=== PATIENT | female | born 1995 | race African-American/Black ===

== ENCOUNTER 2016-08-21 12:16 | Emergency (ER) | payer SELFPAY ==
--- NOTE | 2016-08-21 13:19 | ER Document Report ---
ED Medical Screen (RME) - General Chief Complaint: Abdominal Pain Stated Complaint: PAIN IN SIDE Mode of Arrival: Ambulatory Information source: Patient Notes: Patient states she is having left lower quadrant pain, described as throbbing, intermittent for the past month. She was told she was in June, unsure of LMP and is unsure of how far along she is. At that time, she was diagnosed with BV. She did not take the antibiotic as prescribed. She also endorses discharge, green in color. She has not tried any medication for pain. She endorses nausea, vomiting but denies fever, chills or diarrhea. Denies any vaginal bleeding or loss of fluid. She has not seen an OBGYN. TRAVEL OUTSIDE OF THE [place] IN LAST 30 DAYS: No - Related Data Allergies/Adverse Reactions: iodine [Iodine] Allergy (Severe, Verified 08/21/16 12:38) Hives Shellfish * [Shellfish] Allergy (Severe, Verified 08/21/16 12:38) Hives Past Medical History GI Medical History: Reports: Hx Gastroesophageal Reflux Disease - Immunizations Immunizations up to date: Yes Hx Diphtheria, Pertussis, Tetanus Vaccination: Yes - during this Review of Systems - Review of Systems Constitutional: See HPI Female Genitourinary: See HPI Physical Exam - Vital signs Vitals: Temp Pulse Resp BP Pulse Ox 98.1 F 96 18 116/61 100 08/21/16 12:36 08/21/16 12:36 08/21/16 12:36 08/21/16 12:36 08/21/16 12:36 - Notes Notes: General: Well-appearing, non-toxic, no respiratory distress. Course - Re-evaluation Re-evalutation: 08/21/16 13:25 Patient seen and examined. Ordered urinalysis and urine preg. - Vital Signs Vital signs: Temp Pulse Resp BP Pulse Ox 98.1 F 96 18 116/61 100 08/21/16 12:36 08/21/16 12:36 08/21/16 12:36 08/21/16 12:36 08/21/16 12:36
[2016-08-21 14:26] LABS: APPEARANCE,URINE SLIGHTLY-CLOUDY; BILIRUBIN,URINE NEGATIVE (NEGATIVE); GLUCOSE, URINE NEGATIVE (NEGATIVE); KETONES,URINE NEGATIVE (NEGATIVE); LEUKOCYTE ESTERASE,URINE TRACE (NEGATIVE); NITRITE,URINE NEGATIVE (NEGATIVE); PROTEIN,URINE NEGATIVE (NEGATIVE); URINE SPECIFIC GRAVITY 1.027; UROBILINOGEN,URINE NEGATIVE mg/dL (<2.0)
--- NOTE | 2016-08-21 17:05 | ER Document Report ---
ED General - General Chief Complaint: Abdominal Pain Stated Complaint: PAIN IN SIDE Time seen by provider: 17:00 Mode of Arrival: Ambulatory Notes: This is a 20-year-old female that presents today with vaginal discharge. She states that she was seen here in June of last year with a similar problem and was diagnosed with bacterial vaginosis. She was released on an antibiotic, however she was in the process of moving and lost the prescription. She denies taking the medication. She now states that the discharge is more copious, and describes it as green and clumpy with an odor. Admits to nausea and intermittent vomiting. Admits to constant left upper and left lower quadrant abdominal pain with no radiation and right flank pain. Denies fever chills chest pain shortness of breath. She does not recall her last menstrual period. 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 TRAVEL OUTSIDE OF THE [place] IN LAST 30 DAYS: No - Related Data Allergies/Adverse Reactions: iodine [Iodine] Allergy (Severe, Verified 08/21/16 12:38) Hives Shellfish * [Shellfish] Allergy (Severe, Verified 08/21/16 12:38) Hives Past Medical History - General Information source: Patient - Social History Smoking Status: Never Smoker Family History: Other - Patient is adopted and does not know her biological family GI Medical History: Reports: Hx Gastroesophageal Reflux Disease - Immunizations Immunizations up to date: Yes Hx Diphtheria, Pertussis, Tetanus Vaccination: Yes - during this Review of Systems - Review of Systems Constitutional: denies: Fever Cardiovascular: denies: Chest pain Respiratory: denies: Cough, Hurts to breathe Gastrointestinal: See HPI Genitourinary: See HPI Musculoskeletal: denies: Joint pain, Leg swelling, Ankle swelling Physical Exam - Vital signs Vitals: Temp Pulse Resp BP Pulse Ox 98.1 F 96 18 116/61 100 08/21/16 12:36 08/21/16 12:36 08/21/16 12:36 08/21/16 12:36 08/21/16 12:36 - General General appearance: Appears well - HEENT Head: Normocephalic, Atraumatic Eyes: No: Scleral icterus Conjunctiva: Normal - Respiratory Respiratory status: No respiratory distress. No: Tachypnea Chest status: Nontender - Cardiovascular Rhythm: Regular Heart sounds: Normal auscultation - Abdominal Tenderness: Tender - Left upper, left lower quadrant. - Back Back: CVA tenderness - Right flank - Extremities General upper extremity: Normal inspection General lower extremity: Normal inspection - Neurological Orientation: AAOx4 - Psychological Associated symptoms: Normal affect, Normal mood - Skin Skin Temperature: Warm Skin Moisture: Dry Skin Color: Normal Course - Re-evaluation Re-evalutation: 08/21/16 21:20 Pelvic exam completed. Etta DURBIN chaperoned the exam. Cervical os was closed. There was white cottage cheese like discharge. She denied tenderness on bimanual exam. Transvaginal ultrasound results was shared with the patient. She was given multiple opportunities to ask questions. She was advised to follow-up with an CEMETERY VAULT INSTALLER and establish care. She stated that she would do so. 08/21/16 21:59 Patient is being given treatment for chlamydia and gonorrhea. She is being given 250 of ceftriaxone and 1 g of azithromycin as well as 150 g of Diflucan by mouth for vaginal yeast. She agreed to be treated. She understands discharge instructions. She stated that she would follow-up for the results concerning the gonorrhea and chlamydia. - Vital Signs Vital signs: Temp Pulse Resp BP Pulse Ox 98.2 F 75 20 122/65 98 08/21/16 17:20 08/21/16 22:38 08/21/16 22:38 08/21/16 22:38 08/21/16 22:38 - Laboratory Result Diagrams: 08/21/16 17:15 08/21/16 17:15 Laboratory results interpreted by me: 08/21/16 08/21/16 08/21/16 13:44 17:15 17:15 RDW 14.5 H Creatinine 0.41 L Beta HCG, Quant 19783.00 H Ur Leukocyte Esterase TRACE H Urine HCG, Qual POSITIVE H Procedures - Pelvic Exam Pelvic exam Time completed: 21:20 Cultures obtained: Yes Wet prep obtained: Yes Herpes culture obtained: No POC sent to lab: No Foreign body removed: No Bimanual exam performed: Yes Witnessed by: Etta DURBIN Discharge - Discharge Clinical Impression: Vaginal yeast infection Abdominal pain Qualifiers: Abdominal location: left upper quadrant Qualified Code(s): R10.12 - Left upper quadrant pain Condition: Good Disposition: HOME, SELF-CARE Additional Instructions: Follow-up with primary care physician. Return to the emergency department if symptoms worsen. Vaginal Yeast Infection You have evidence of a yeast infection -- called "masha." A vaginal yeast infection often causes itching and discharge. While not dangerous, it can be very unpleasant. A yeast infection often follows the use of powerful antibiotics. It is more likely to occur in diabetics. The treatment now is usually a single pill of Diflucan, but also an antifungal cream or suppository may be used for a few days. You do not need to avoid sexual intercourse. Recurrences are common. You can make a recurrence less likely by wearing cotton underwear and avoiding tight clothing. For mild recurrences, you can try [id number] creams or suppositories that are made specifically for yeast. If the symptoms do not resolve, you should follow up for re-examination. Sometimes treatment of the sexual partner is necessary if infections are recurrent. Referrals: [facility] [Provider Group] - Follow up as needed
[2016-08-21 17:27] LABS: ABSOLUTE EOSINOPHILS # (AUTO) 0.1 10^3/uL (0.0-0.6); ABSOLUTE LYMPHOCYTES (AUTO) 1.9 10^3/uL (0.5-4.7); ABSOLUTE MONOCYTES (AUTO) 0.5 10^3/uL (0.1-1.4); BASOPHILS % (AUTO) 0.4 % (0-2); EOSINOPHILS % (AUTO) 0.7 % (0-6); HEMATOCRIT 38.8 % (36.0-47.0); HEMOGLOBIN 12.8 g/dL (12.0-15.5); HGB HCT DIFFERENCE -0.4; LYMPHOCYTES % (AUTO) 19.8 % (13-45); MEAN CORPUSCULAR HEMOGLOBIN 28.4 pg (27.0-33.4); MEAN CORPUSCULAR HGB CONC 33.1 g/dL (32.0-36.0); MEAN CORPUSCULAR VOLUME 86 fl (80-97); MONOCYTES % (AUTO) 5.2 % (3-13); RED BLOOD COUNT 4.52 10^6/uL (3.72-5.28); RED CELL DISTRIBUTION WIDTH 14.5 % (11.5-14.0); SEGMENTED NEUTROPHILS % (AUTO) 73.9 % (42-78); WHITE BLOOD COUNT 9.4 10^3/uL (4.0-10.5)
[2016-08-21 17:46] LABS: ALANINE AMINOTRANSFERASE 21 U/L (9-52); ALBUMIN 4.2 g/dL (3.5-5.0); ALKALINE PHOSPHATASE 64 U/L (38-126); ANION GAP 12 (5-19); ASPARTATE AMINO TRANSFERASE 14 U/L (14-36); BILIRUBIN,TOTAL 0.3 mg/dL (0.2-1.3); BLOOD UREA NITROGEN 7 mg/dL (7-20); CALCIUM 9.2 mg/dL (8.4-10.2); CARBON DIOXIDE 23 mmol/L (22-30); CHLORIDE 104 mmol/L (98-107); CREATININE RESULT 0.41 mg/dL (0.52-1.25); GLUCOSE 83 mg/dL (75-110); POTASSIUM 4.1 mmol/L (3.6-5.0); SODIUM 138.8 mmol/L (137-145); TOTAL PROTEIN 6.9 g/dL (6.3-8.2)
[2016-08-21] MEDS ORDERED: FLUCONAZOLE 100 MG TABLET PO ONE (21:56)
[2016-08-21] MEDS ORDERED: AZITHROMYCIN 1 GM SUSP PACKET PO ONE (21:58)
[2016-08-21] MEDS ORDERED: CEFTRIAXONE INJ 250 MG VIAL IM ONE (21:58)
[2016-08-21] MEDS ORDERED: LIDOCAINE 1% INJ-PF (10 MG/ML) 30 ML SDV ONE (22:27)
[2016-08-21 22:38] VITALS: BP 122/65
[2016-08-21 22:57] LABS: CHLAM PCR NOT DETECTED (NOT DETECT)
== END 2016-08-21 22:38 | disposition home or self-care (01) ==
LOC: ER 12:16
DX: B37.3 Candidiasis of vulva and vagina (principal); R10.12 Left upper quadrant pain; K21.9 Gastro-esophageal reflux disease without esophagitis; Z91.013 Allergy to seafood
CPT/HCPCS: 99284; 96372; 36415; 87210; 84702; 85025; 81025; 80053; 81001; 87491; 87591; 76817; 93976; J3490; Q0144; J0696

== ENCOUNTER 2016-11-25 17:35 | Outpatient (CLI) | payer MEDICAID ==
[2016-11-25 18:18] LABS: AMORPHOUS SEDIMENT,URINE TRACE /HPF; APPEARANCE,URINE CLOUDY; BILIRUBIN,URINE NEGATIVE (NEGATIVE); GLUCOSE, URINE NEGATIVE (NEGATIVE); KETONES,URINE NEGATIVE (NEGATIVE); LEUKOCYTE ESTERASE,URINE SMALL (NEGATIVE); NITRITE,URINE NEGATIVE (NEGATIVE); PROTEIN,URINE NEGATIVE (NEGATIVE); URINE SPECIFIC GRAVITY 1.011; UROBILINOGEN,URINE NEGATIVE mg/dL (<2.0)
[2016-11-25 18:29] LABS: URINE BARBITURATES SCREEN NEGATIVE; URINE METHADONE SCREEN NEGATIVE; URINE OPIATES LOW NEGATIVE; URINE PHENCYCLIDINE SCREEN NEGATIVE
--- NOTE | 2016-11-25 21:51 | L&D Discharge Summary ---
OB Discharge Summary Datetime Report Generated by CPN: 11/25/2016 21:51 DISCHARGE DIAGNOSIS Diagnosis/Symptoms: Abdominal Pain Diagnoses/Symptoms Other: round ligament pain Number of Babies in Womb: 1 Parity: 3 DIET/ACTIVITY/RESTRICTIONS Diet: Regular Activity: Normal Activity TEACHING/INSTRUCTIONS/REFERRALS Instructions Given To: pt Instructions Understood: Patient Verbalized Understanding Referrals: None Educational Materials- Other: round ligament pain care notes DISCHARGE INFORMATION Discharged AMA: No Discharge Date/Time: 11/25/2016 18:45 Discharged To: Home Discharge Provider Name: Dr Mejia Accompanied By: FOB Discharge Method: Ambulatory Condition: Stable FOLLOW UP INFORMATION Follow Up With: [facility] Follow Up On: 1-2 Days Follow Up Phone Number: [facility] -
--- NOTE | 2016-11-29 22:47 | L&D Current Admission ---
Current Admit Datetime Report Generated by CPN: 11/29/2016 22:45 ADMISSION INFORMATION Chief Complaint: Back Pain; Other (11/25/2016 17:55:Emliy Galindo RN)
--- NOTE | 2016-11-29 22:47 | L&D General Admission ---
General Admit Datetime Report Generated by CPN: 11/29/2016 22:45 INFORMATION Patient Age: 20 (10/04/2015 10:55:QS system process) EDC: 03/01/2017 00:00 (11/25/2016 17:49:Emily Galindo RN) : 4 (11/25/2016 17:49:Emily Galindo RN) Para: 3 (11/25/2016 17:49:Emily Galindo RN) Term: 3 (11/25/2016 17:49:Emily Galindo RN) : 0 (11/25/2016 17:49:Emily Galindo RN) Spontaneous Abortions: 0 (11/25/2016 17:49:Emily Galindo RN) Induced Abortions: 0 (11/25/2016 17:49:Emily Galindo RN) Livin (11/25/2016 17:49:Emily Galindo RN) Cesareans: 0 (11/25/2016 17:49:Emily Galindo RN) VBACs: 0 (11/25/2016 17:49:Emily Galindo RN) Ectopic: 0 (11/25/2016 17:49:Emily Galindo RN) Multiple Births: 0 (11/25/2016 17:49:Emily Galindo RN) Baby, Number in Womb: 1 (11/25/2016 17:49:Emily Galindo RN) CARE Primary Metal Bending Machine Operator: [facility] (11/25/2016 17:49:Emily Galindo RN) Height (in): 64 (11/25/2016 18:32:QS system process) Height (in): 64 (11/25/2016 18:20:QS system process) ALLERGIES Medication Allergy: No (11/25/2016 17:49:Emily Galindo RN) Medication Allergies: Shellfish */SV/Hives (08/21/2016); iodine/SV/Hives (08/21/2016) (08/21/2016 15:55:QS system process) Medication Allergies: Shellfish */SV/Hives (07/27/2016); iodine/SV/Hives (07/27/2016) (07/27/2016 18:47:QS system process) Medication Allergies: Shellfish */SV/Hives (09/20/2015); iodine/SV/Hives (09/20/2015) (01/27/2016 10:44:QS system process) Medication Allergies: Shellfish/SV/Hives (09/20/2015); Iodine/SV/Hives (09/20/2015) (10/04/2015 10:55:QS system process) Latex Allergy: No Latex Allergies (Annotations: Data stored by N on behalf of user) (11/25/2016 17:49:Emily Galindo RN) COMMUNICATION Primary Language: Northern Irish (11/25/2016 17:49:Emily Galindo RN) Medical Tx Preferred Language: Northern Irish (11/25/2016 17:49:Emily Galindo RN) DEMOGRAPHICS Address: [address] [place] [address] (08/09/2016 10:35:QS system process) Address: [address] [place] [address] (08/02/2016 12:42:QS system process) Address: [address] [place] [address] (10/04/2015 10:55:QS system process) Zipcode: [address] (10/04/2015 10:55:QS system process) Home (08/28/2016 12:52:QS system process) Home (08/02/2016 12:42:QS system process) Home (07/27/2016 18:47:QS system process) Home (06/23/2016 00:34:QS system process) Home (10/04/2015 10:55:QS system process) Work (08/09/2016 10:36:QS system process) Work (10/04/2015 10:55:QS system process) SSN: [id number] (10/04/2015 10:55:QS system process) Next of Kin Name: ANN RANGEL (07/27/2016 18:47:QS system process) Next of Kin Name: ANN ESTRADA (10/04/2015 10:55:QS system process) Next of Kin (10/04/2015 10:55:QS system process) Next of Kin Relationship: MO (10/04/2015 10:55:QS system process) Date of : 1995 (10/04/2015 10:55:QS system process) Marital Status: Single (10/04/2015 10:55:QS system process) Sex: Female (10/04/2015 10:55:QS system process) Race: (11/25/2016 17:35:QS system process) Race: Declined to Specify (08/28/2016 12:52:QS system process) Race: (10/04/2015 10:55:QS system process) Ethnicity: Non- or (10/04/2015 10:55:QS system process) Rastafarian: None (10/04/2015 10:55:QS system process) LABS Hemoglobin: 12.8 (08/21/2016 17:15:QS system process) Hemoglobin: 11.9 L (01/27/2016 11:45:QS system process) Hematocrit: 38.8 (08/21/2016 17:15:QS system process) Hematocrit: 37.4 (01/27/2016 11:45:QS system process) MCV: 86 (08/21/2016 17:15:QS system process) MCV: 86 (01/27/2016 11:45:QS system process)
--- NOTE | 2016-11-29 22:47 | L&D Discharge Summary ---
OB Discharge Summary Datetime Report Generated by CPN: 11/29/2016 22:45 DISCHARGE DIAGNOSIS Diagnosis/Symptoms: Abdominal Pain Diagnoses/Symptoms Other: round ligament pain Gestation: 26.4 Number of Babies in Womb: 1 Parity: 3 DIET/ACTIVITY/RESTRICTIONS Diet: Regular Activity: Normal Activity TEACHING/INSTRUCTIONS/REFERRALS Instructions Given To: pt Instructions Understood: Patient Verbalized Understanding Referrals: None Educational Materials- Other: round ligament pain care notes DISCHARGE INFORMATION Discharged AMA: No Discharge Date/Time: 11/25/2016 18:45 Discharged To: Home Discharge Provider Name: Dr Mejia Accompanied By: FOB Discharge Method: Ambulatory Condition: Stable FOLLOW UP INFORMATION Follow Up With: [facility] Follow Up On: 1-2 Days Follow Up Phone Number: [facility] -
--- NOTE | 2016-11-30 04:46 | L&D Current Admission ---
Current Admit Datetime Report Generated by CPN: 11/30/2016 04:45 ADMISSION INFORMATION Chief Complaint: Back Pain; Other (11/25/2016 17:55:Emily Galindo RN)
--- NOTE | 2016-11-30 04:46 | L&D Discharge Summary ---
OB Discharge Summary Datetime Report Generated by CPN: 11/30/2016 04:45 DISCHARGE DIAGNOSIS Diagnosis/Symptoms: Abdominal Pain Diagnoses/Symptoms Other: round ligament pain Gestation: 26.4 Number of Babies in Womb: 1 Parity: 3 DIET/ACTIVITY/RESTRICTIONS Diet: Regular Activity: Normal Activity TEACHING/INSTRUCTIONS/REFERRALS Instructions Given To: pt Instructions Understood: Patient Verbalized Understanding Referrals: None Educational Materials- Other: round ligament pain care notes DISCHARGE INFORMATION Discharged AMA: No Discharge Date/Time: 11/25/2016 18:45 Discharged To: Home Discharge Provider Name: Dr Mejia Accompanied By: FOB Discharge Method: Ambulatory Condition: Stable FOLLOW UP INFORMATION Follow Up With: [facility] Follow Up On: 1-2 Days Follow Up Phone Number: [facility] -
--- NOTE | 2016-11-30 04:46 | L&D General Admission ---
General Admit Datetime Report Generated by CPN: 11/30/2016 04:45 INFORMATION Patient Age: 20 (10/04/2015 10:55:QS system process) EDC: 03/01/2017 00:00 (11/25/2016 17:49:Emily Galindo RN) : 4 (11/25/2016 17:49:Emily Galindo RN) Para: 3 (11/25/2016 17:49:Emily Galindo RN) Term: 3 (11/25/2016 17:49:Emily Galindo RN) : 0 (11/25/2016 17:49:Emily Galindo RN) Spontaneous Abortions: 0 (11/25/2016 17:49:Emily Galindo RN) Induced Abortions: 0 (11/25/2016 17:49:Emily Galindo RN) Livin (11/25/2016 17:49:Emily Galindo RN) Cesareans: 0 (11/25/2016 17:49:Emily Galindo RN) VBACs: 0 (11/25/2016 17:49:Emily Galindo RN) Ectopic: 0 (11/25/2016 17:49:Emily Galindo RN) Multiple Births: 0 (11/25/2016 17:49:Emily Galindo RN) Baby, Number in Womb: 1 (11/25/2016 17:49:Emily Galindo RN) CARE Primary Sheriff Deputy: [facility] (11/25/2016 17:49:Emily Galindo RN) Height (in): 64 (11/25/2016 18:32:QS system process) Height (in): 64 (11/25/2016 18:20:QS system process) ALLERGIES Medication Allergy: No (11/25/2016 17:49:Emily Galindo RN) Medication Allergies: Shellfish */SV/Hives (08/21/2016); iodine/SV/Hives (08/21/2016) (08/21/2016 15:55:QS system process) Medication Allergies: Shellfish */SV/Hives (07/27/2016); iodine/SV/Hives (07/27/2016) (07/27/2016 18:47:QS system process) Medication Allergies: Shellfish */SV/Hives (09/20/2015); iodine/SV/Hives (09/20/2015) (01/27/2016 10:44:QS system process) Medication Allergies: Shellfish/SV/Hives (09/20/2015); Iodine/SV/Hives (09/20/2015) (10/04/2015 10:55:QS system process) Latex Allergy: No Latex Allergies (Annotations: Data stored by N on behalf of user) (11/25/2016 17:49:Emily Galindo RN) COMMUNICATION Primary Language: Northern Irish (11/25/2016 17:49:Emily Galindo RN) Medical Tx Preferred Language: Northern Irish (11/25/2016 17:49:Emily Galindo RN) DEMOGRAPHICS Address: [address] [place] [address] (08/09/2016 10:35:QS system process) Address: [address] [place] [address] (08/02/2016 12:42:QS system process) Address: [address] [place] [address] (10/04/2015 10:55:QS system process) Zipcode: [address] (10/04/2015 10:55:QS system process) Home (08/28/2016 12:52:QS system process) Home (08/02/2016 12:42:QS system process) Home (07/27/2016 18:47:QS system process) Home (06/23/2016 00:34:QS system process) Home (10/04/2015 10:55:QS system process) Work (08/09/2016 10:36:QS system process) Work (10/04/2015 10:55:QS system process) SSN: [id number] (10/04/2015 10:55:QS system process) Next of Kin Name: ANN RANGEL (07/27/2016 18:47:QS system process) Next of Kin Name: ANN ESTRADA (10/04/2015 10:55:QS system process) Next of Kin (10/04/2015 10:55:QS system process) Next of Kin Relationship: MO (10/04/2015 10:55:QS system process) Date of : 1995 (10/04/2015 10:55:QS system process) Marital Status: Single (10/04/2015 10:55:QS system process) Sex: Female (10/04/2015 10:55:QS system process) Race: (11/25/2016 17:35:QS system process) Race: Declined to Specify (08/28/2016 12:52:QS system process) Race: (10/04/2015 10:55:QS system process) Ethnicity: Non- or (10/04/2015 10:55:QS system process) Taoist: None (10/04/2015 10:55:QS system process) LABS Hemoglobin: 12.8 (08/21/2016 17:15:QS system process) Hemoglobin: 11.9 L (01/27/2016 11:45:QS system process) Hematocrit: 38.8 (08/21/2016 17:15:QS system process) Hematocrit: 37.4 (01/27/2016 11:45:QS system process) MCV: 86 (08/21/2016 17:15:QS system process) MCV: 86 (01/27/2016 11:45:QS system process)
--- NOTE | 2016-11-30 10:46 | L&D Current Admission ---
Current Admit Datetime Report Generated by CPN: 11/30/2016 10:45 ADMISSION INFORMATION Chief Complaint: Back Pain; Other (11/25/2016 17:55:Emily Galindo RN)
--- NOTE | 2016-11-30 10:46 | L&D General Admission ---
General Admit Datetime Report Generated by CPN: 11/30/2016 10:45 INFORMATION Patient Age: 20 (10/04/2015 10:55:QS system process) EDC: 03/01/2017 00:00 (11/25/2016 17:49:Emily Galindo RN) : 4 (11/25/2016 17:49:Emily Galindo RN) Para: 3 (11/25/2016 17:49:Emily Galindo RN) Term: 3 (11/25/2016 17:49:Emily Galindo RN) : 0 (11/25/2016 17:49:Emily Galindo RN) Spontaneous Abortions: 0 (11/25/2016 17:49:Emily Galindo RN) Induced Abortions: 0 (11/25/2016 17:49:Emily Galindo RN) Livin (11/25/2016 17:49:Emily Galindo RN) Cesareans: 0 (11/25/2016 17:49:Emily Galindo RN) VBACs: 0 (11/25/2016 17:49:Emily Galindo RN) Ectopic: 0 (11/25/2016 17:49:Emily Galindo RN) Multiple Births: 0 (11/25/2016 17:49:Emily Galindo RN) Baby, Number in Womb: 1 (11/25/2016 17:49:Emily Galindo RN) CARE Primary Crop Nutrition Scientist: [facility] (11/25/2016 17:49:Emily Galindo RN) Height (in): 64 (11/25/2016 18:32:QS system process) Height (in): 64 (11/25/2016 18:20:QS system process) ALLERGIES Medication Allergy: No (11/25/2016 17:49:Emily Galindo RN) Medication Allergies: Shellfish */SV/Hives (08/21/2016); iodine/SV/Hives (08/21/2016) (08/21/2016 15:55:QS system process) Medication Allergies: Shellfish */SV/Hives (07/27/2016); iodine/SV/Hives (07/27/2016) (07/27/2016 18:47:QS system process) Medication Allergies: Shellfish */SV/Hives (09/20/2015); iodine/SV/Hives (09/20/2015) (01/27/2016 10:44:QS system process) Medication Allergies: Shellfish/SV/Hives (09/20/2015); Iodine/SV/Hives (09/20/2015) (10/04/2015 10:55:QS system process) Latex Allergy: No Latex Allergies (Annotations: Data stored by N on behalf of user) (11/25/2016 17:49:Emily Galindo RN) COMMUNICATION Primary Language: Grenadian (11/25/2016 17:49:Emily Galindo RN) Medical Tx Preferred Language: Grenadian (11/25/2016 17:49:Emily Galindo RN) DEMOGRAPHICS Address: [address] [place] [address] (08/09/2016 10:35:QS system process) Address: [address] [place] [address] (08/02/2016 12:42:QS system process) Address: [address] [place] [address] (10/04/2015 10:55:QS system process) Zipcode: [address] (10/04/2015 10:55:QS system process) Home (08/28/2016 12:52:QS system process) Home (08/02/2016 12:42:QS system process) Home (07/27/2016 18:47:QS system process) Home (06/23/2016 00:34:QS system process) Home (10/04/2015 10:55:QS system process) Work (08/09/2016 10:36:QS system process) Work (10/04/2015 10:55:QS system process) SSN: [id number] (10/04/2015 10:55:QS system process) Next of Kin Name: ANN RANGEL (07/27/2016 18:47:QS system process) Next of Kin Name: ANN ESTRADA (10/04/2015 10:55:QS system process) Next of Kin (10/04/2015 10:55:QS system process) Next of Kin Relationship: [place] (10/04/2015 10:55:QS system process) Date of : 1995 (10/04/2015 10:55:QS system process) Marital Status: Single (10/04/2015 10:55:QS system process) Sex: Female (10/04/2015 10:55:QS system process) Race: (11/25/2016 17:35:QS system process) Race: Declined to Specify (08/28/2016 12:52:QS system process) Race: (10/04/2015 10:55:QS system process) Ethnicity: Non- or (10/04/2015 10:55:QS system process) Taoist: None (10/04/2015 10:55:QS system process) LABS Hemoglobin: 12.8 (08/21/2016 17:15:QS system process) Hemoglobin: 11.9 L (01/27/2016 11:45:QS system process) Hematocrit: 38.8 (08/21/2016 17:15:QS system process) Hematocrit: 37.4 (01/27/2016 11:45:QS system process) MCV: 86 (08/21/2016 17:15:QS system process) MCV: 86 (01/27/2016 11:45:QS system process)
--- NOTE | 2016-11-30 10:46 | L&D Discharge Summary ---
OB Discharge Summary Datetime Report Generated by CPN: 11/30/2016 10:45 DISCHARGE DIAGNOSIS Diagnosis/Symptoms: Abdominal Pain Diagnoses/Symptoms Other: round ligament pain Gestation: 26.4 Number of Babies in Womb: 1 Parity: 3 DIET/ACTIVITY/RESTRICTIONS Diet: Regular Activity: Normal Activity TEACHING/INSTRUCTIONS/REFERRALS Instructions Given To: pt Instructions Understood: Patient Verbalized Understanding Referrals: None Educational Materials- Other: round ligament pain care notes DISCHARGE INFORMATION Discharged AMA: No Discharge Date/Time: 11/25/2016 18:45 Discharged To: Home Discharge Provider Name: Dr Mejia Accompanied By: FOB Discharge Method: Ambulatory Condition: Stable FOLLOW UP INFORMATION Follow Up With: [facility] Follow Up On: 1-2 Days Follow Up Phone Number: [facility] -
== END 2016-11-25 18:45 | disposition home or self-care (01) ==
LOC: LC 17:35
PROVIDERS: ATTEND Student in an Organized Health Care Education/Training Program
PROC: 4A1HXCZ Monitoring of Products of Conception, Cardiac Rate, External Approach (ICD-10-PCS; principal; 2016-11-25)
DX: O26.892 Other specified pregnancy related conditions, second trimester (principal); R10.2 Pelvic and perineal pain; Z3A.26 26 weeks gestation of pregnancy
CPT/HCPCS: 80307; 81001

== ENCOUNTER 2017-02-21 13:06 | Inpatient (IN) | payer MEDICAID ==
[2017-02-22] MEDS ORDERED: PENICILLIN G-K 5 MILLION UNIT VIAL ONE ×5 (06:35→22:53)
[2017-02-22] MEDS ORDERED: OXYTOCIN/NORMAL SALINE 20 UNIT/1,000 ML RTUINJ ONE ×3 (06:35→20:19)
[2017-02-22] MEDS ORDERED: OXYTOCIN/NORMAL SALINE 1,000 ML IV PRN (06:39)
[2017-02-22] MEDS ORDERED: PENICILLIN G POTASSIUM 5,000,000 UNIT in DEXTROSE 5%-WATER 100 ML IV ONE (06:39)
[2017-02-22 06:45] LABS: APPEARANCE,URINE CLEAR; BILIRUBIN,URINE NEGATIVE (NEGATIVE); GLUCOSE, URINE NEGATIVE (NEGATIVE); KETONES,URINE NEGATIVE (NEGATIVE); LEUKOCYTE ESTERASE,URINE SMALL (NEGATIVE); NITRITE,URINE NEGATIVE (NEGATIVE); PROTEIN,URINE NEGATIVE (NEGATIVE); URINE SPECIFIC GRAVITY 1.006; UROBILINOGEN,URINE NEGATIVE mg/dL (<2.0)
[2017-02-22] MEDS ORDERED: GLYBURIDE 5 MG TABLET ONE (06:54)
[2017-02-22 07:00] LABS: ABSOLUTE EOSINOPHILS # (AUTO) 0.1 10^3/uL (0.0-0.6); ABSOLUTE MONOCYTES (AUTO) 0.6 10^3/uL (0.1-1.4); ABSOLUTE NEUT (AUTO) 6.1 10^3/uL (1.7-8.2); BASOPHILS % (AUTO) 0.5 % (0-2); EOSINOPHILS % (AUTO) 0.9 % (0-6); HEMATOCRIT 29.4 % (36.0-47.0); HEMOGLOBIN 9.3 g/dL (12.0-15.5); HGB HCT DIFFERENCE -1.5; LYMPHOCYTES % (AUTO) 22.9 % (13-45); MEAN CORPUSCULAR HEMOGLOBIN 24.6 pg (27.0-33.4); MEAN CORPUSCULAR HGB CONC 31.7 g/dL (32.0-36.0); MEAN CORPUSCULAR VOLUME 78 fl (80-97); RED BLOOD COUNT 3.79 10^6/uL (3.72-5.28); RED CELL DISTRIBUTION WIDTH 17.9 % (11.5-14.0); SEGMENTED NEUTROPHILS % (AUTO) 68.7 % (42-78); WHITE BLOOD COUNT 8.8 10^3/uL (4.0-10.5)
[2017-02-22] MEDS ORDERED: GLYBURIDE 2.5 MG TABLET PO ONE (07:00)
[2017-02-22 07:11] LABS: URINE BARBITURATES SCREEN NEGATIVE; URINE METHADONE SCREEN NEGATIVE; URINE OPIATES LOW NEGATIVE; URINE PHENCYCLIDINE SCREEN NEGATIVE
[2017-02-22] MEDS ORDERED: ACETAMINOPHEN 325 MG TABLET ONE (07:32)
[2017-02-22] MEDS: RINGERS SOLUTION,LACTATED 1,000 ML IV PRN ×2 (07:47→14:16)
[2017-02-22] MEDS ORDERED: ACETAMINOPHEN 325 MG TABLET PO ONE (08:30)
[2017-02-22] MEDS ORDERED: PENICILLIN G POTASSIUM 2,500,000 UNIT in DEXTROSE 5%-WATER 50 ML IV SCH (10:39)
[2017-02-22] MEDS ORDERED: MAG HYDROX/AL HYDROX/SIMETH SUSP 30 ML UDCUP ONE (12:22)
[2017-02-22] MEDS ORDERED: MAG HYDROX/AL HYDROX/SIMETH SUSP 30 ML UDCUP PO ONE (13:00)
--- NOTE | 2017-02-22 13:48 | L&D Progress Notes ---
PROGRESS NOTES Datetime Report Generated by CPN: 02/22/2017 13:48 PROGRESS NOTE Impression: Normal Progression of Labor Procedures: Artificial ROM Plan: Continue Present Management; Induction Informed Consent Obtained: Vaginal Delivery; Risks, Benefits and Alternatives Discussed Informed Consent Obtained: Vaginal Delivery; Risks, Benefits and Alternatives Discussed Vital Signs : Reviewed Comment: pt doing well admitted earlier for induction of labor secondary to gestational diabetes pitocin at 20 milliunits/ min abdomen soft and nontender FHTs 120s ctxs 3-4 min apart poc reviewed with pt and family VAGINAL EXAM Dilatation: 2 Effacement: 50 Station: -2 MEMBRANES Membranes: Ruptured Membranes: Intact Amniotic Fluid Color: Clear FETUS A FHR - Baseline: 120 Monitoring: External US Variability: Moderate 6-25bpm Accelerations: 15X15 Decelerations: None FHR Category: Category I : 40.0 Presentation: Vertex SIGNATURE SIGNATURE: [id number] Assignment: Michael Gilbert MD Signature: with User ID: [email or web address] : with User ID: [email or web address]
[2017-02-22] MEDS: PENICILLIN G-K 5 MILLION UNIT VIAL IV SCH ×2 (19:37→23:51)
[2017-02-22] MEDS ORDERED: MISOPROSTOL 0.2 MG TABLET ONE ×2 (20:19)
[2017-02-22] MEDS ORDERED: LIDOCAINE 1% INJ-PF (10 MG/ML) 30 ML SDV ONE ×2 (20:19)
[2017-02-22] MEDS ORDERED: PROMETHAZINE HCL INJ 25 MG/1 ML VIAL IV ONE (23:31)
[2017-02-22] MEDS ORDERED: NALBUPHINE HCL INJ 10 MG/1 ML AMPULE IV ONE (23:31)
[2017-02-22] MEDS ORDERED: NALBUPHINE HCL INJ 10 MG/1 ML AMPULE ONE (23:38)
[2017-02-22] MEDS ORDERED: PROMETHAZINE HCL INJ 25 MG/1 ML VIAL ONE (23:38)
[2017-02-23] MEDS: RINGERS SOLUTION,LACTATED 1,000 ML IV PRN ×2 (03:22→06:25)
[2017-02-23] MEDS: PENICILLIN G-K 5 MILLION UNIT VIAL IV SCH ×3 (03:25→15:38)
[2017-02-23] MEDS ORDERED: PENICILLIN G-K 5 MILLION UNIT VIAL ONE ×2 (03:25→07:28)
[2017-02-23] MEDS ORDERED: EPHEDRINE SULFATE INJ 50 MG/1 ML AMPULE ONE (03:48)
[2017-02-23] MEDS ORDERED: BUPIVACAINE HCL 0.25 % INJ/PF (2.5 MG/1 ML) 30 ML VIAL ONE (03:49)
[2017-02-23] MEDS ORDERED: FENTANYL/BUPIVACAINE/NS/PF 200 MCG/100 ML RTUINJ EPI ONE (03:49)
[2017-02-23] MEDS ORDERED: BUPIVACAINE HCL 0.25 % INJ/PF (2.5 MG/1 ML) 30 ML VIAL INFIL ONE (05:58)
[2017-02-23] MEDS ORDERED: BENZOIN/ALOE VERA/STORAX/TOLU TINCTURE 60 ML TP PRN (05:58)
[2017-02-23] MEDS ORDERED: EPHEDRINE SULFATE INJ 50 MG/1 ML AMPULE IV PRN (05:58)
[2017-02-23] MEDS ORDERED: DIPHENHYDRAMINE HCL 50 MG/ML VIAL IV PRN (05:58)
[2017-02-23] MEDS: FENTANYL/BUPIVACAINE/NS/PF 100 ML EPI PRN ×2 (06:21→15:38)
[2017-02-23] MEDS ORDERED: OXYTOCIN/NORMAL SALINE 0 UNIT/0 ML RTUINJ ONE (08:00)
[2017-02-23] MEDS ORDERED: MISOPROSTOL 0.2 MG TABLET ONE (08:00)
[2017-02-23] MEDS ORDERED: LIDOCAINE 1% INJ-PF (10 MG/ML) 30 ML SDV ONE (08:00)
[2017-02-23] MEDS ORDERED: OXYTOCIN/NORMAL SALINE 1,000 ML IV PRN ×2 (08:48→13:03)
[2017-02-23] MEDS ORDERED: METHYLERGONOVINE MALEATE INJ/PF 0.2 MG/1 ML AMPULE ONE (09:02)
[2017-02-23] MEDS ORDERED: ACETAMINOPHEN WITH CODEINE #3 TABLET PO PRN (13:03)
[2017-02-23] MEDS ORDERED: MAGNESIUM HYDROXIDE SUSP 30 ML UDCUP PO PRN (13:03)
[2017-02-23] MEDS ORDERED: BENZOCAINE/MENTHOL AEROSOL SPRAY 56 ML TOP PRN (13:03)
[2017-02-23] MEDS ORDERED: ZOLPIDEM TARTRATE 5 MG TABLET PO PRN (13:03)
[2017-02-23] MEDS ORDERED: NA PHOS,M-B/NA PHOS,DI-BA (ADULT) 133 ML ENEMA PR PRN (13:03)
[2017-02-23] MEDS ORDERED: DIPHENHYDRAMINE HCL 25 MG CAPSULE PO PRN (13:03)
[2017-02-23] MEDS ORDERED: PROMETHAZINE HCL INJ 25 MG/1 ML VIAL IV PRN (13:03)
[2017-02-23] MEDS ORDERED: GLYCERIN/WITCH HAZEL LEAF 1 EACH MED..PAD TP PRN (13:03)
[2017-02-23] MEDS ORDERED: DIBUCAINE 1% OINTMENT 28 GM TP PRN (13:03)
[2017-02-23] MEDS ORDERED: DIPH/PERTUSS(ACELL)/TETANUS VAC/PF 0.5 ML SYR (>=10YO) IM PRN (13:03)
[2017-02-23] MEDS ORDERED: ACETAMINOPHEN 650 MG SUPP.RECT PR PRN (13:03)
[2017-02-23] MEDS ORDERED: PROMETHAZINE HCL 25 MG TABLET PO PRN (13:03)
[2017-02-23] MEDS ORDERED: PSEUDOEPHEDRINE HCL 30 MG TABLET PO PRN (13:03)
[2017-02-23] MEDS ORDERED: MEASLES,MUMPS&RUBELLA VACC/PF 0.5 ML VIAL SUBCUT PRN (13:03)
[2017-02-23] MEDS ORDERED: PROMETHAZINE HCL 25 MG SUPP.RECT PR PRN (13:03)
[2017-02-23] MEDS ORDERED: ACETAMINOPHEN 325 MG TABLET ONE (13:09)
--- NOTE | 2017-02-23 14:13 | Delivery Summary ---
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 Compound right hand. Spontaneous respirations and cry. Apgars 9-9. 3-vessel cord. Cord clamped x2, after 2 min delay, then cut by FOB. Placenta, membranes, and cord expelled at 1245, [place] presentation, appears intact. Perineum intact. Vaginal bleeding increase after about 2 mins-1000mg Cytotec per rectum. Hemostasis achieved. Patient tolerated procedure well. LABOR SUMMARY EDC: 03/01/2017 00:00 No. Babies in Womb: 1 Attempted: No Labor Anesthesia: Epidural LABOR INFORMATION Reason for Induction: Maternal Diabetes Onset of Labor: 02/22/2017 13:40 Complete Dilatation: 02/23/2017 12:21 Oxytocin: Induction Group B Beta Strep: positive Antibiotics # of Doses: 7 Antibiotics Time of Last Dose: 744 Name of Antibiotic Given: Penicillin Steroids Given: None Reason Steroids Not Administered: Not Applicable MEMBRANES Membranes Rupture Method: Spontaneous Rupture of Membranes: 02/22/2017 13:40 Length of Rupture (hr): 22.93 Amniotic Fluid Color: Clear Amniotic Fluid Amount: Scant Amniotic Fluid Odor: Normal STAGES OF LABOR Stage 1 hr: 22 Stage 1 min: 41 Stage 2 hr: 0 Stage 2 min: 15 Stage 3 hr: 0 Stage 3 min: 9 Total Time in Labor hr: 23 Total Time in Labor min: 5 VAGINAL DELIVERY Episiotomy: None Laceration Extension: N/A Laceration Type: None Laceration Repair: Not Applicable Sponge Count Correct: N/A Sharps Count Correct: Yes CSECTION DELIVERY Primary Indication: N/A Secondary Indication: N/A CSection Incidence: N/A Labor: N/A Elective: N/A CSection Incision: N/A BABY A INFORMATION Infant Delivery Date/Time: 02/23/2017 12:36 Method of Delivery: Vaginal Born in Route : No : N/A Forceps: N/A Vacuum Extraction: N/A Shoulder Dystocia : No PRESENTATION/POSITION BABY A Presentation: Cephalic Cephalic Presentation: Vertex Vertex Position: Left Occipital Anterior Breech Presentation: N/A PLACENTA INFORMATION BABY A Placenta Delivery Time : 02/23/2017 12:45 Placenta Method of Delivery: Spontaneous Placenta Status: Delivered SCORES BABY A Heart Rate 1 min: >100 bpm Resp Effort 1 min: Good Cry Reflex Irritability 1 min: Cough or Sneeze or Pulls Away Muscle Tone 1 min: Active Motion Color 1 min: Body [place], Extremities Blue Resuscitation Effort 1 min: Tactile Stimulation SCORE 1 MIN: 9 Heart Rate 5 min: >100 bpm Resp Effort 5 min: Good Cry Reflex Irritability 5 min: Cough or Sneeze or Pulls Away Muscle Tone 5 min: Active Motion Color 5 min: Body [place], Extremities Blue Resuscitation Effort 5 min: N/A SCORE 5 MIN: 9 Heart Rate 10 min: >100 bpm Resp Effort 10 min: Good Cry Reflex Irritability 10 min: Cough or Sneeze or Pulls Away Muscle Tone 10 min: Active Motion Color 10 min: Completely [place] Resuscitation Effort 10 min: N/A SCORE 10 MIN: 10 INFANT INFORMATION BABY A Gestational Age at Delivery: 39.0 Gestational Status: Full Term- 39- 40.6 Weeks Outcome : Liveborn Infant Condition : Stable Infant Sex: Male IDENTIFICATION BABY A Verification Date/Time: 02/23/2017 13:31 ID Band Number: [id number] Mother's Name Verified: Yes RN Verifying Infant: B Baidy RN/ Vianney Campbell RN WEIGHT/LENGTH BABY A Birthweight (gm): 3560 Weight (lb): 7 Weight (oz): 14 Infant Length (in): 20.50 Infant Length (cm): 52.07 CORD INFORMATION BABY A No. Cord Vessels: 3 Nuchal Cord : N/A Cord Blood Taken: Yes-For Eval (Mom's Blood Type - or O+) Infant Suction: Mouth; Nose ASSESSMENT BABY A Infant Complications: None Physical Findings at Delivery: Within Normal Limits Physical Findings- Other: compound left hand Respirations: Appears Normal Skin to Skin: Yes Promotions Representative/ALS Called : No Infant Care By: Billie Dominguez RN/ Yamilet Lowe RN Transferred To: Remains with Mother BABY B INFORMATION : N/A SIGNATURES Assignment: Micheline Judd MD Signature: with User ID: Miriam : with User ID: [email or web address] : I personally evaluated and examined the patient in conjunction with the MLP and agree with the assessment, treatment plan and disposition.
[2017-02-23] MEDS: IBUPROFEN 800 MG TABLET PO SCH ×2 (15:38→22:07)
--- NOTE | 2017-02-23 16:05 | Admission Physical ---
Datetime Report Generated by CPN: 02/23/2017 16:05 CURRENT ADMISSION Hx Assessment: The History has been Reviewed and is Current ALLERGIES Medication Allergies: No Medication Allergies: Bleach (Sodium Hypochlorite) (02/22/2017); Shellfish */SV/Hives (02/22/2017); iodine/SV/Hives (02/22/2017) Medication Allergies: Shellfish */SV/Hives (08/21/2016); iodine/SV/Hives (08/21/2016) Medication Allergies: Shellfish */SV/Hives (07/27/2016); iodine/SV/Hives (07/27/2016) Medication Allergies: Shellfish */SV/Hives (09/20/2015); iodine/SV/Hives (09/20/2015) Medication Allergies: Shellfish/SV/Hives (09/20/2015); Iodine/SV/Hives (09/20/2015) Latex: No Latex Allergies (Annotations: Data stored by CPN on behalf of user) Food Allergies: seafood/shellfish OBSTETRICAL HISTORY EDC: 03/01/2017 00:00 : 4 Para: 3 Term: 3 : 0 SAB: 0 IAB: 0 Ectopic: 0 Livin Cesareans: 0 VBACs: 0 Multiple Births: 0 Gestational Diabetes: Yes Rh Sensitization: No Incompetent Cervix: No VALERIY: No Infertility: No ART Treatment: No Uterine Anomaly: No IUGR: No Hx Previous C/S: No Macrosomia: No Hx Loss/Stillborn: No PIH: No Hx : No Placenta Previa/Abruption: No Depression/PP Depression: No PTL/PROM: No Post Hemorrhage: No Current Procedures: Ultrasound; NST Obstetrical History Comments: G1----09/30--40--6lb 3oz G2--NSV--04/02--52s1y--1qr 9oz G3----10/05--05n9--1zn 15oz G4--Current SEE RECORDS Alcohol: No Marijuana : No Cocaine: No Other Illicit Drugs: No Cigarettes: Former Smoker. [id number] MEDICAL HISTORY Diabetes: Yes Diabetes Type: Gestational Diabetes Blood Transfusion: No Pulmonary Disease (Asthma, TB): No Breast Disease: No Hypertension: No Edge Grinder Machine Surgery: No Heart Disease: No Hosp/Surgery: Yes Autoimmune Disorder: No Anesthetic Complications: No Kidney Disease: No Abnormal Pap Smear: No Neuro/Epilepsy: No Psychiatric Disorders: No Other Medical Diseases: No Hepatitis/Liver Disease: No Significant Family History: No Varicosities/Phlebitis: No Trauma/Violence : No Thyroid Dysfunction: No Medical History Comments: D_C 2013 INFECTIOUS HISTORY Gonorrhea: No Genital Herpes: No Chlamydia: Yes Tuberculosis: No Syphilis: No Hepatitis: No HIV/AIDS Exposure: No Rash or Viral Illness: No HPV: No Infectious History Comments: chlamydia 02/2015 PHYSICAL EXAM General: Normal HEENT: Normal Neurologic: Normal Thyroid: Normal Heart: Normal Lungs: Normal Breast: Normal Back: Normal Abdomen: Normal Genitourinary Exam: Normal Extremities: Normal DTRs: Normal Pelvic Type: Adequate VAGINAL EXAM Dilatation: 2 Effacement: 50 Station: -2 MEMBRANES Membranes: Ruptured Membranes: Intact Amniotic Fluid Color: Clear FETUS A Monitoring: External US FHR- Baseline: 120 Accelerations: 15X15 Decelerations: None FHR Category: Category I Presentation: Vertex Admit Comment: 21 yo admitted for IOL 2ndary to GDM noncompliant allergies- iodine, shellfish, and bleach EDC 03/01/17 EGA 39 weeks abdomen nontender FHTS 120s ctx q 3-5 min GBS positive exam deferred until 2nd dose of abx given rbs this AM- 166 glyburide 2.5 po given pitocin at 14 milliunits/ min anticipate PLANS FOR LABOR AND DELIVERY Labor and Delivery: None Pain Management: Epidural Feeding Preference: Formula Benefit of Breast Feed Discussed: Yes Circumcision: Yes INFORMED CONSENT Informed Consent Obtained: Vaginal Delivery; Risks, Benefits and Alternatives Discussed Informed Consent Obtained: Vaginal Delivery; Risks, Benefits and Alternatives Discussed Assignment: Michael Gilbert MD Signature: with User ID: [email or web address] : with User ID: [email or web address] : I personally evaluated and examined the patient in conjunction with the MLP and agree with the assessment, treatment plan and disposition.
[2017-02-23] MEDS: DOCUSATE SODIUM 100 MG CAPSULE PO SCH (17:29)
[2017-02-23] MEDS: ACETAMINOPHEN WITH CODEINE #3 TABLET PO PRN ×2 (17:29→22:08)
[2017-02-23] MEDS: FERROUS SULFATE 325 MG TABLET PO SCH (17:29)
[2017-02-23] MEDS: FAMOTIDINE 20 MG TABLET PO SCH (22:07)
[2017-02-24] MEDS: PENICILLIN G-K 5 MILLION UNIT VIAL IV SCH ×2 (00:50→02:36)
[2017-02-24] MEDS: IBUPROFEN 800 MG TABLET PO SCH ×3 (06:06→21:22)
[2017-02-24] MEDS: ACETAMINOPHEN WITH CODEINE #3 TABLET PO PRN ×2 (07:42→18:34)
[2017-02-24 08:23] LABS: HEMOGLOBIN 8.7 g/dL (12.0-15.5); HGB HCT DIFFERENCE -1.9; MEAN CORPUSCULAR HEMOGLOBIN 24.4 pg (27.0-33.4); MEAN CORPUSCULAR HGB CONC 31.1 g/dL (32.0-36.0); MEAN CORPUSCULAR VOLUME 78 fl (80-97); RED BLOOD COUNT 3.57 10^6/uL (3.72-5.28); RED CELL DISTRIBUTION WIDTH 18.4 % (11.5-14.0)
--- NOTE | 2017-02-24 08:46 | PDOC PROGRESS REPORT ---
Subjective-OB Subjective: Post Delivery Day: 21 year old. Denies any needs at this time Physical Exam (OB) Vital Signs: Temp Pulse Resp BP Pulse Ox 98 F 61 16 109/60 99 02/24/17 08:00 02/24/17 08:00 02/24/17 08:00 02/24/17 08:00 02/24/17 08:00 - Lochia Lochia Amount: Scant < 10 ml Lochia Color: Rubra/Red - Abdomen Description: Tender, Soft Hernia Present: No Bowel Sounds: Normoactive Flatus Presence: Present Stool: Yes Fundal Description: Firm, Midline Fundal Height: u/u - u/2 Objective-Diagnostic Laboratory: 02/24/17 07:38 02/24/17 07:38 WBC 12.0 H RBC 3.57 L Hgb 8.7 L Hct 28.0 L MCV 78 L MCH 24.4 L MCHC 31.1 L RDW 18.4 H Plt Count 191
[2017-02-24] MEDS: SENNOSIDES/DOCUSATE 8.6-50 MG 1 EACH TABLET PO SCH (09:18)
[2017-02-24] MEDS: FERROUS SULFATE 325 MG TABLET PO SCH ×2 (09:18→18:34)
[2017-02-24] MEDS: FAMOTIDINE 20 MG TABLET PO SCH ×2 (09:18→21:23)
[2017-02-24] MEDS: DOCUSATE SODIUM 100 MG CAPSULE PO SCH ×2 (09:18→18:34)
[2017-02-24] MEDS: PRENATAL VITAMIN W-O CA NO5/FE FUMARATE/FA CAPSULE PO SCH (09:18)
[2017-02-25] MEDS: ACETAMINOPHEN WITH CODEINE #3 TABLET PO PRN (01:58)
[2017-02-25] MEDS: IBUPROFEN 800 MG TABLET PO SCH (05:25)
[2017-02-25 07:27] VITALS: BP 109/60
[2017-02-25] MEDS: FAMOTIDINE 20 MG TABLET PO SCH (09:07)
[2017-02-25] MEDS: SENNOSIDES/DOCUSATE 8.6-50 MG 1 EACH TABLET PO SCH (09:07)
[2017-02-25] MEDS: PRENATAL VITAMIN W-O CA NO5/FE FUMARATE/FA CAPSULE PO SCH (09:07)
[2017-02-25] MEDS: FERROUS SULFATE 325 MG TABLET PO SCH (09:07)
[2017-02-25] MEDS: DOCUSATE SODIUM 100 MG CAPSULE PO SCH (09:07)
--- NOTE | 2017-02-25 09:33 | PDOC PROGRESS REPORT ---
Subjective-OB Subjective: Post Delivery Day: 21 year old. Denies any needs at this time. Ready to go home. Physical Exam (OB) Vital Signs: Temp Pulse Resp BP Pulse Ox 97.4 F 71 16 109/60 98 02/25/17 07:13 02/25/17 07:13 02/25/17 07:13 02/25/17 07:13 02/25/17 07:13 Intake & Output 02/24/17 02/25/17 02/26/17 06:59 06:59 06:59 Intake Total 1000 Balance 1000 - PIH/Pre-Eclampsia Clonus: Negative - Lochia Lochia Amount: Scant < 10 ml Lochia Color: Rubra/Red - Abdomen Description: Soft, Round Hernia Present: No Bowel Sounds: Normoactive Flatus Presence: Present Stool: Yes Fundal Description: Firm, Midline Fundal Height: u/u - u/2 Objective-Diagnostic Laboratory: 02/24/17 07:38
--- NOTE | 2017-02-25 09:40 | PDOC DISCHARGE SUMMARY ---
Final Diagnosis Discharge Date: 02/25/17 - Final Diagnosis (1) Delivery normal Is this a current diagnosis for this admission?: Yes (2) GDM (gestational diabetes mellitus) Is this a current diagnosis for this admission?: Yes (3) Insufficient antepartum care Is this a current diagnosis for this admission?: Yes (4) Poor compliance Is this a current diagnosis for this admission?: Yes (5) Positive GBS test Is this a current diagnosis for this admission?: Yes (6) Is this a current diagnosis for this admission?: Yes (7) Anemia Is this a current diagnosis for this admission?: Yes Discharge Data - Discharge Medication Home Medications: Vit/Iron Fumarate/FA [ Tablet] 1 tab PO DAILY 08/29/15 Ferrous Sulfate [Feosol 325 mg Tablet] 325 mg PO BID #60 tablet 02/25/17 Ibuprofen [Motrin 800 mg Tablet] 800 mg PO Q8 #20 tablet 02/25/17 Gestational Age: 39.0 wks Reason(s) for Admission: Induction of Labor, Gestional Diabetes Procedures: NST, Ultrasound Intrapartum Procedure(s): Spontaneous Vaginal Delivery - [place] Data Baby 1 Male at 1 minute: 9 at 5 minutes: 9 Weight: 3.572 kg Home with Mother: Yes Complications: No - Diagnosis Test Laboratory: Temp Pulse Resp BP Pulse Ox 97.4 F 71 16 109/60 98 02/25/17 07:13 02/25/17 07:13 02/25/17 07:13 02/25/17 07:13 02/25/17 07:13 02/22/17 02/22/17 02/24/17 06:30 06:45 07:38 RBC 3.79 3.57 L Hgb 9.3 L 8.7 L Hct 29.4 L 28.0 L Urine Opiates Screen NEGATIVE - Discharge information/Instructions Discharge Activity: Activity As Tolerated, Balance Activity w/Rest, Pelvic Rest , Slowly Increase Activity, No tub bath Discharge Diet: Regular Disposition: HOME, SELF-CARE Follow up with: [facility] in: 4, Weeks
== END 2017-02-25 11:55 | disposition home or self-care (01) | DRG 775 ==
LOC: EDSTATUS 13:07 → LR 02-22 06:20 → 2S 02-23 16:03
PROVIDERS: ADMIT Obstetrics & Gynecology; ATTEND Obstetrics & Gynecology
PROC: 10E0XZZ Delivery of Products of Conception, External Approach (ICD-10-PCS; principal; 2017-02-23)
DX: O24.429 Gestational diabetes mellitus in childbirth, unspecified control (principal); Z3A.39 39 weeks gestation of pregnancy; Z37.0 Single live birth; O99.824 Streptococcus B carrier state complicating childbirth; O99.02 Anemia complicating childbirth; D64.9 Anemia, unspecified; Z87.891 Personal history of nicotine dependence; Z91.013 Allergy to seafood
CPT/HCPCS: 36415; 80307; 81005; 82962; 85025; 85027; 86592; 86850; 86900; 86901; 88307; J2210; J2300; J2540; J2550; J2590; J3490

== ENCOUNTER 2017-03-02 22:10 | Emergency (ER) | payer MEDICAID ==
[2017-03-02] MEDS ORDERED: MORPHINE SULFATE IR 15 MG TABLET PO ONE (22:41)
[2017-03-02] MEDS ORDERED: KETOROLAC TROMETHAMINE 60 MG/2 ML SDV IM ONE (22:41)
--- NOTE | 2017-03-02 22:44 | ER Document Report ---
ED General - General Chief Complaint: Abdominal Pain Stated Complaint: ABDOMINAL PAIN Time Seen by Provider: 03/02/17 22:30 Notes: Patient is a 21-year-old female 8 days post delivery who presents with lower abdominal pain that has been present since delivery. Describes it as an intermittent, stabbing, cramping pain to the right lower abdomen that has become more constant today. Denies any ongoing vaginal bleeding or discharge. No fever. No vomiting or diarrhea. She has not seen her TELEPHONE COIN BOX COLLECTOR regarding today's concerns. Denies a history of similar symptoms in the past. TRAVEL OUTSIDE OF THE [place] IN LAST 30 DAYS: No - Related Data Allergies/Adverse Reactions: iodine [Iodine] Allergy (Severe, Verified 02/22/17 06:32) Hives Shellfish * [Shellfish] Allergy (Severe, Verified 02/22/17 06:32) Hives Bleach (Sodium Hypochlorite) Allergy (Verified 02/22/17 06:32) Past Medical History - General Information source: Patient - Social History Smoking Status: Never Smoker Frequency of alcohol use: None Drug Abuse: None Lives with: Family Family History: Reviewed & Not Pertinent, Other - Patient is adopted and does not know her biological family Patient has suicidal ideation: No Patient has homicidal ideation: No Renal/ Medical History: Denies: Hx Peritoneal Dialysis GI Medical History: Reports: Hx Gastroesophageal Reflux Disease - Immunizations Immunizations up to date: Yes Hx Diphtheria, Pertussis, Tetanus Vaccination: Yes - during this Review of Systems - Review of Systems Notes: Constitutional: Negative for fever. HENT: Negative for sore throat. Eyes: Negative for visual changes. Cardiovascular: Negative for chest pain. Respiratory: Negative for shortness of breath. Gastrointestinal: Positive for abdominal pain, negative for vomiting or diarrhea Genitourinary: Negative for dysuria. Musculoskeletal: Negative for back pain. Skin: Negative for rash. Neurological: Negative for headaches, weakness or numbness. 10 point ROS negative except as marked above and in HPI. Physical Exam - Vital signs Vitals: Temp Pulse Resp BP Pulse Ox 98.3 F 60 20 132/61 H 97 03/02/17 22:19 03/02/17 22:19 03/02/17 22:19 03/02/17 22:19 03/02/17 22:19 Interpretation: Normal Notes: PHYSICAL EXAMINATION: GENERAL: Well-appearing, well-nourished and in no acute distress. HEAD: Atraumatic, normocephalic. EYES: Pupils equal round and reactive to light, extraocular movements intact, sclera anicteric, conjunctiva are normal. ENT: nares patent, oropharynx clear without exudates. Moist mucous membranes. NECK: Normal range of motion, supple without lymphadenopathy LUNGS: Breath sounds clear to auscultation bilaterally and equal. No wheezes rales or rhonchi. HEART: Regular rate and rhythm without murmurs ABDOMEN: Soft, nontender, normoactive bowel sounds. No guarding, no rebound. No masses appreciated. EXTREMITIES: Normal range of motion, no pitting or edema. No cyanosis. NEUROLOGICAL: No focal neurological deficits. Moves all extremities spontaneously and on command. PSYCH: Normal mood, normal affect. SKIN: Warm, Dry, normal turgor, no rashes or lesions noted. Course - Re-evaluation Re-evalutation: 03/02/17 22:42 Patient presents with 8 days of constant but today worsened cramping to the right lower abdomen since having a vaginal delivery. Patient appears in no distress, no focal right lower quadrant tenderness, mild right adnexal tenderness. No rebound or guarding. Clinical history and exam are not consistent with an acute appendicitis or ovarian torsion. Suspect likely cramping in the setting of a setting. However, given patient's persistence of pain, will obtain a transvaginal ultrasound to evaluate for a TOA , much less likely ovarian torsion on the right. I do not believe patient should have an additional CT of her abdomen pelvis that she is ready had 3 of these in the last 2 years and I have a low clinical suspicion for appendicits, perforation, biliary pathology, or obstruction. 03/02/17 23:46 Transvaginal ultrasound unable to visualize the ovaries. Patient is in pain is improved at this time. Laboratories unremarkable with the exception of mild anemia which is anticipated given her course. No evidence of a leukocytosis or bandemia suggest an acute infection and clinically I do not suspect an acute endometritis. At this time will discharge with return precautions and follow-up recommendations. Verbal discharge instructions given a the bedside and opportunity for questions given. Medication warnings reviewed. Patient is in agreement with this plan and has verbalized understanding of return precautions and the need for primary care follow-up in the next 24-72 hours. - Vital Signs Vital signs: Temp Pulse Resp BP Pulse Ox 98.3 F 51 L 18 125/65 97 03/02/17 22:19 03/02/17 23:55 03/02/17 23:55 03/02/17 23:55 03/02/17 23:55 - Laboratory Result Diagrams: 03/02/17 23:00 03/02/17 23:00 Laboratory results interpreted by me: 03/02/17 23:00 Hgb 9.7 L Hct 31.5 L MCV 79 L MCH 24.2 L MCHC 30.8 L RDW 19.0 H Band Neutrophils % 1 L Discharge - Discharge Clinical Impression: pain, Lower abdominal pain Condition: Good Disposition: HOME, SELF-CARE Additional Instructions: You have been seen in the Emergency Department (ED) for abdominal pain. Your evaluation did not identify a clear cause of your symptoms but was generally reassuring. Please follow up with your doctor as soon as possible regarding today's emergent visit and the symptoms that are bothering you. Return to the ED if your abdominal pain worsens or fails to improve, you develop bloody vomiting, bloody diarrhea, you are unable to tolerate fluids due to vomiting, fever greater than 101, or other symptoms that concern you. Referrals: MARJAN GREENFIELD MD [Primary Care Provider] - Follow up in 3-5 days
[2017-03-02 23:12] LABS: HEMATOCRIT 31.5 % (36.0-47.0); HEMOGLOBIN 9.7 g/dL (12.0-15.5); HGB HCT DIFFERENCE -2.4; MEAN CORPUSCULAR HEMOGLOBIN 24.2 pg (27.0-33.4); MEAN CORPUSCULAR HGB CONC 30.8 g/dL (32.0-36.0); MEAN CORPUSCULAR VOLUME 79 fl (80-97); WHITE BLOOD COUNT 8.8 10^3/uL (4.0-10.5)
[2017-03-02 23:23] LABS: ANION GAP 12 (5-19); BLOOD UREA NITROGEN 14 mg/dL (7-20); CALCIUM 9.1 mg/dL (8.4-10.2); CARBON DIOXIDE 23 mmol/L (22-30); CHLORIDE 106 mmol/L (98-107); CREATININE RESULT 0.55 mg/dL (0.52-1.25); GLUCOSE 86 mg/dL (75-110); POTASSIUM 3.9 mmol/L (3.6-5.0); SODIUM 140.7 mmol/L (137-145)
[2017-03-02 23:31] LABS: BAND NEUTROPHILS % (MANUAL) 1 % (3-5); BASOPHILS % (MANUAL) 0 % (0-2); EOSINOPHILS % (MANUAL) 1 % (0-6); LYMPHOCYTES % (MANUAL) 26 % (13-45); TOTAL CELLS COUNTED 100
[2017-03-02 23:32] LABS: HYPOCHROMASIA 1+; MICROCYTOSIS SLIGHT
[2017-03-02 23:33] LABS: ANISOCYTOSIS 2+; OVALOCYTES 1+; POIKILOCYTOSIS 1+; TEAR DROP CELLS SLIGHT
--- NOTE | 2017-03-02 23:41 | RADIOLOGY REPORT (SQ) ---
EXAM DESCRIPTION: U/S NON OB PEL TV W/DOPPLER COMPLETED DATE/TIME: 03/02/2017 11:31 pm REASON FOR STUDY: r adnexal pain COMPARISON: None. TECHNIQUE: Dynamic and static grayscale images acquired of the pelvis via transvaginal approach and recorded on PACS. Additional selected color Doppler and spectral images recorded. LIMITATIONS: None. FINDINGS: UTERUS: Contour normal. No mass. ENDOMETRIAL STRIPE: Thickened heterogenous endometrium. CERVIX: No nabothian cysts. RIGHT OVARY: Ovary not visualized. LEFT OVARY: Ovary not visualized. FREE FLUID: None noted. OTHER: No other significant finding. MEASUREMENTS: UTERUS: 9.0 x 9.6 x 14.2 cm. ENDOMETRIAL STRIPE: 3.6 cm. RIGHT OVARY: Not visualized. LEFT OVARY: Not visualized. IMPRESSION: THICKENED HETEROGENOUS ENDOMETRIUM, PRESUMED CHANGES. INFECTION SUCH ENDO METRITIS COULD GIVE A SIMILAR APPEARANCE. OVARIES NOT VISUALIZED. TECHNICAL DOCUMENTATION: JOB ID: [id number] [email or web address]- All Rights Reserved
[2017-03-02 23:56] VITALS: BP 125/65
== END 2017-03-02 23:54 | disposition home or self-care (01) ==
LOC: ER 22:10
DX: O90.9 Complication of the puerperium, unspecified (principal); R10.30 Lower abdominal pain, unspecified; Z91.013 Allergy to seafood
CPT/HCPCS: 99284; 96372; 36415; 85025; 80048; 76830; 93976; J1885

== ENCOUNTER 2017-09-19 04:19 | Emergency (ER) | payer SELFPAY ==
[2017-09-19 05:56] LABS: ABSOLUTE EOSINOPHILS # (AUTO) 0.1 10^3/uL (0.0-0.6); ABSOLUTE LYMPHOCYTES (AUTO) 2.1 10^3/uL (0.5-4.7); ABSOLUTE MONOCYTES (AUTO) 0.5 10^3/uL (0.1-1.4); ABSOLUTE NEUT (AUTO) 6.5 10^3/uL (1.7-8.2); BASOPHILS % (AUTO) 0.4 % (0-2); EOSINOPHILS % (AUTO) 0.6 % (0-6); HEMATOCRIT 34.6 % (36.0-47.0); HEMOGLOBIN 11.6 g/dL (12.0-15.5); LYMPHOCYTES % (AUTO) 23.1 % (13-45); MEAN CORPUSCULAR HEMOGLOBIN 27.2 pg (27.0-33.4); MEAN CORPUSCULAR HGB CONC 33.4 g/dL (32.0-36.0); MEAN CORPUSCULAR VOLUME 81 fl (80-97); MONOCYTES % (AUTO) 5.1 % (3-13); PLATELET COUNT 256 10^3/uL (150-450); RED BLOOD COUNT 4.25 10^6/uL (3.72-5.28); RED CELL DISTRIBUTION WIDTH 17.4 % (11.5-14.0); SEGMENTED NEUTROPHILS % (AUTO) 70.8 % (42-78); TOTAL CELLS COUNTED % (AUTO) 100 %; WHITE BLOOD COUNT 9.2 10^3/uL (4.0-10.5)
[2017-09-19 06:12] LABS: ALANINE AMINOTRANSFERASE 17 U/L (9-52); ALBUMIN 3.9 g/dL (3.5-5.0); ALKALINE PHOSPHATASE 58 U/L (38-126); ANION GAP 10 (5-19); ASPARTATE AMINO TRANSFERASE 13 U/L (14-36); BLOOD UREA NITROGEN 3 mg/dL (7-20); CALCIUM 9.3 mg/dL (8.4-10.2); CARBON DIOXIDE 24 mmol/L (22-30); CHLORIDE 104 mmol/L (98-107); GLUCOSE 90 mg/dL (75-110); SODIUM 138.2 mmol/L (137-145); TOTAL PROTEIN 6.6 g/dL (6.3-8.2)
[2017-09-19 06:30] LABS: BILIRUBIN,TOTAL < 0.1 mg/dL (0.2-1.3)
[2017-09-19 06:41] LABS: APPEARANCE,URINE SLIGHTLY-CLOUDY; BILIRUBIN,URINE NEGATIVE (NEGATIVE); COLOR,URINE YELLOW; GLUCOSE, URINE NEGATIVE (NEGATIVE); KETONES,URINE NEGATIVE (NEGATIVE); LEUKOCYTE ESTERASE,URINE MODERATE (NEGATIVE); NITRITE,URINE NEGATIVE (NEGATIVE); PROTEIN,URINE NEGATIVE (NEGATIVE); URINE SPECIFIC GRAVITY 1.018; UROBILINOGEN,URINE NEGATIVE mg/dL (<2.0)
--- NOTE | 2017-09-19 06:46 | RADIOLOGY REPORT (SQ) ---
EXAM DESCRIPTION: U/S 1TRIMESTER/1GEST W/DOPPLER COMPLETED DATE/TIME: 09/19/2017 6:34 am REASON FOR STUDY: vaginal bleeding in COMPARISON: None. TECHNIQUE: Transvaginal grayscale images acquired of the pelvis. Additional selected spectral and co rama Doppler images recorded. All images stored on PACs. bHCG: Pending. LIMITATIONS: None. FINDINGS: FETUS: Living intrauterine . EGA: 13 weeks 4 days THEO: 03/23/2018 FHR: 155 beats per minute. SUBCHORIONIC BLEED: Yes. SIZE OF BLEED: 2.4 x 2.7 x 1.0 cm. UTERUS: Measures 18.6 x 10.6 x 9.8 cm. CERVICAL LENGTH: 3.5 cm. Closed. RIGHT ADNEXA: The right ovary measures 3.6 x 3.1 x 1.9 cm. Flow by Doppler was shown to the right ov colt. LEFT ADNEXA: The left ovary measures 4.2 x 3.3 x 2.8 cm. Flow by Doppler was shown to the left ovary . FREE FLUID: None. IMPRESSION: LIVING INTRAUTERINE . EGA 13 WEEKS 4 DAYS. SMALL SUBCHORIONIC HEMORRHAGE. Trimester of : Second - 13 weeks 1 day to 27 weeks 6 days. TECHNICAL DOCUMENTATION: JOB ID: [id number] [id number] [employer]- All Rights Reserved
--- NOTE | 2017-09-19 07:54 | ER Document Report ---
ED General - General Chief Complaint: Vag Bleeding, +preg <12wks Stated Complaint: VAGINAL BLEEDING Time Seen by Provider: 09/19/17 06:15 TRAVEL OUTSIDE OF THE [place] IN LAST 30 DAYS: No - HPI Patient complains to provider of: Vaginal bleeding positive Notes: Patient states vaginal bleeding bright red blood clots ongoing for the past 24- 48 hours. Patient is a . Patient denies any trauma denies any recent sexual intercourse. Patient resting comfortably upon my evaluation denies fevers chills nausea vomiting diarrhea denies abdominal pain - Related Data Allergies/Adverse Reactions: iodine [Iodine] Allergy (Severe, Verified 09/19/17 04:20) Hives Shellfish * [Shellfish] Allergy (Severe, Verified 09/19/17 04:20) Hives Bleach (Sodium Hypochlorite) Allergy (Verified 09/19/17 04:20) Past Medical History - Social History Smoking Status: Never Smoker Chew tobacco use (# tins/day): No Frequency of alcohol use: Rare Drug Abuse: None Family History: Reviewed & Not Pertinent, Other - Patient is adopted and does not know her biological family Patient has suicidal ideation: No Patient has homicidal ideation: No Renal/ Medical History: Denies: Hx Peritoneal Dialysis GI Medical History: Reports: Hx Gastroesophageal Reflux Disease - Immunizations Immunizations up to date: Yes Hx Diphtheria, Pertussis, Tetanus Vaccination: Yes - during this Review of Systems - Review of Systems Constitutional: No symptoms reported EENT: No symptoms reported Cardiovascular: No symptoms reported Respiratory: No symptoms reported Gastrointestinal: No symptoms reported Genitourinary: No symptoms reported Female Genitourinary: Vaginal bleeding Musculoskeletal: No symptoms reported Skin: No symptoms reported Hematologic/Lymphatic: No symptoms reported Neurological/Psychological: No symptoms reported Physical Exam - Vital signs Vitals: Temp Pulse Resp BP Pulse Ox 98.4 F 93 18 119/68 98 09/19/17 04:21 09/19/17 04:21 09/19/17 04:21 09/19/17 04:21 09/19/17 04:21 Interpretation: Normal - General General appearance: Appears well, Alert - HEENT Head: Normocephalic, Atraumatic Eyes: Normal Pupils: PERRL - Respiratory Respiratory status: No respiratory distress Chest status: Nontender Breath sounds: Normal Chest palpation: Normal - Cardiovascular Rhythm: Regular Heart sounds: Normal auscultation Murmur: No - Abdominal Inspection: Normal Distension: No distension Bowel sounds: Normal Tenderness: Nontender Organomegaly: No organomegaly - Back Back: Normal, Nontender - Extremities General upper extremity: Normal inspection, Nontender, Normal color, Normal ROM , Normal temperature General lower extremity: Normal inspection, Nontender, Normal color, Normal ROM , Normal temperature, Normal weight bearing. No: Carloz's sign - Neurological Neuro grossly intact: Yes Cognition: Normal Orientation: AAOx4 Thornton Coma Scale Eye Opening: Spontaneous Cathy Coma Scale Verbal: Oriented Cathy Coma Scale Motor: Obeys Commands Cathy Coma Scale Total: 15 Speech: Normal Motor strength normal: LUE, RUE, LLE, RLE Sensory: Normal - Psychological Associated symptoms: Normal affect, Normal mood - Skin Skin Temperature: Warm Skin Moisture: Dry Skin Color: Normal Course - Re-evaluation Re-evalutation: 09/19/17 15:32 Laboratory studies did not reveal any significant pathology. Ultrasound shows a 13 week IUP with a heart rate of 155. Patient previous blood draws from her old records show that she is a positive no need for greater exam at this time. Patient was educated about subchorionic bleed was seen on the ultrasound patient was encouraged follow-up with [facility] in the next 4872 hours for repeat beta-hCG testing or return to the ER. Patient states understanding was discharged home - Vital Signs Vital signs: Temp Pulse Resp BP Pulse Ox 98.7 F 80 18 97/59 L 98 09/19/17 08:14 09/19/17 08:14 09/19/17 08:14 09/19/17 08:14 09/19/17 08:14 - Laboratory Result Diagrams: 09/19/17 05:45 09/19/17 05:45 Laboratory results interpreted by me: 09/19/17 09/19/17 09/19/17 05:06 05:45 05:45 Hgb 11.6 L Hct 34.6 L RDW 17.4 H BUN 3 L Creatinine 0.42 L Total Bilirubin < 0.1 L AST 13 L Beta HCG, Quant 836546.00 H Urine Blood MODERATE H Ur Leukocyte Esterase MODERATE H Discharge - Discharge Clinical Impression: Vaginal bleeding before 22 weeks gestation Condition: Good Disposition: HOME, SELF-CARE Instructions: Bleeding During Early ([facility]) Additional Instructions: Your ultrasound today shows a 13 week 4 day fetus with a small subchorionic bleed. This will be sent in the [facility] will need to follow throughout her . Otherwise previously looks to be normal. Please observe pelvic rest nothing inside the vagina including toys no sex no tampons. Please follow- up with [facility] take vitamins take medication as prescribed for nausea return to the ER if symptoms worsen Would recommend follow-up in 48-72 hours for repeat beta-hCG testing. He may also follow-up with your [facility]. For nausea and vomiting during I recomment: Start with 10-12.5 mg of pyridoxine (vitamin B6) three times a day for 2 days. If not fully effective, Increase to 12.5 mg of pyridoxine four times a day for 2 days. If not fully effective, Increase to 25 mg of pyridoxine three times a day for 2 days. If not fully effective, Continue 25 mg pyridoxine 3 times a day, and add 12.5 mg of doxylamine before bedtime each day for 2 days. If not fully effective, Continue 25 mg pyridoxine 3 times a day, and take 12.5 mg of doxylamine twice a day. If not fully effective, Continue 25 mg pyridoxine 3 times a day, and take 12.5 mg of doxylamine three times a day. If not fully effective, Continue 25 mg pyridoxine 3 times a day, and 12.5 mg of doxylamine 3 times a day , while adding Emetrol, one to two tablespoons (15-30 cc) taken once or twice a day as needed. (Emetrol is an bewo-ced-jxjnhad mixture of sugar syrups and phosphoric acid [phosphorylated carbohydrate solution]) that acts by soothing the actual wall of the gastrointestinal tract). If not fully effective, Consult with your doctor. Prescriptions: Metoclopramide HCl [Reglan] 5 mg PO Q6 #30 tablet Prenat 115/Iron Fum/Folic/Dss [ 19 Tablet] 1 each PO DAILY #30 tablet Forms: Follow-Up Outpatient Testing Referrals: MARYCRUZ DIANE MD [ACTIVE STAFF] - Follow up as needed
[2017-09-19 08:20] VITALS: BP 97/59
== END 2017-09-19 08:20 | disposition home or self-care (01) ==
LOC: ER 04:19
DX: O46.91 Antepartum hemorrhage, unspecified, first trimester (principal); Z3A.13 13 weeks gestation of pregnancy
CPT/HCPCS: 36415; 76801; 80053; 81001; 84702; 85025; 93976; 99284

== ENCOUNTER 2017-10-28 06:06 | Emergency (ER) | payer MEDICAID ==
[2017-10-28] MEDS ORDERED: NORMAL SALINE 1000 ML 1,000 ML IV ONE (06:33)
[2017-10-28] MEDS ORDERED: METOCLOPRAMIDE HCL INJ/PF 10 MG/2 ML SDV IV ONE (06:33)
[2017-10-28 07:11] LABS: ABSOLUTE EOSINOPHILS # (AUTO) 0.1 10^3/uL (0.0-0.6); ABSOLUTE LYMPHOCYTES (AUTO) 1.8 10^3/uL (0.5-4.7); ABSOLUTE MONOCYTES (AUTO) 0.7 10^3/uL (0.1-1.4); ABSOLUTE NEUT (AUTO) 7.4 10^3/uL (1.7-8.2); BASOPHILS % (AUTO) 0.3 % (0-2); EOSINOPHILS % (AUTO) 0.8 % (0-6); HEMATOCRIT 32.3 % (36.0-47.0); HEMOGLOBIN 10.7 g/dL (12.0-15.5); LYMPHOCYTES % (AUTO) 18.3 % (13-45); MEAN CORPUSCULAR HEMOGLOBIN 26.8 pg (27.0-33.4); MEAN CORPUSCULAR VOLUME 81 fl (80-97); PLATELET COUNT 221 10^3/uL (150-450); RED BLOOD COUNT 3.98 10^6/uL (3.72-5.28); RED CELL DISTRIBUTION WIDTH 16.7 % (11.5-14.0); SEGMENTED NEUTROPHILS % (AUTO) 73.6 % (42-78); TOTAL CELLS COUNTED % (AUTO) 100 %; WHITE BLOOD COUNT 10.1 10^3/uL (4.0-10.5)
[2017-10-28 07:23] LABS: APPEARANCE,URINE CLEAR; BILIRUBIN,URINE NEGATIVE (NEGATIVE); COLOR,URINE YELLOW; GLUCOSE, URINE NEGATIVE (NEGATIVE); KETONES,URINE NEGATIVE (NEGATIVE); LEUKOCYTE ESTERASE,URINE TRACE (NEGATIVE); NITRITE,URINE NEGATIVE (NEGATIVE); PROTEIN,URINE NEGATIVE (NEGATIVE); URINE SPECIFIC GRAVITY 1.038; UROBILINOGEN,URINE NEGATIVE mg/dL (<2.0)
[2017-10-28 07:24] LABS: ALANINE AMINOTRANSFERASE 9 U/L (9-52); ALBUMIN 3.3 g/dL (3.5-5.0); ALKALINE PHOSPHATASE 76 U/L (38-126); ANION GAP 9 (5-19); ASPARTATE AMINO TRANSFERASE 14 U/L (14-36); BILIRUBIN,DIRECT 0.2 mg/dL (0.0-0.4); BILIRUBIN,TOTAL 0.2 mg/dL (0.2-1.3); BLOOD UREA NITROGEN 10 mg/dL (7-20); CALCIUM 8.6 mg/dL (8.4-10.2); CARBON DIOXIDE 23 mmol/L (22-30); CHLORIDE 107 mmol/L (98-107); GLUCOSE 89 mg/dL (75-110); LIPASE 36.3 U/L (23-300); POTASSIUM 3.8 mmol/L (3.6-5.0); SODIUM 138.5 mmol/L (137-145); TOTAL PROTEIN 6.1 g/dL (6.3-8.2)
--- NOTE | 2017-10-28 08:12 | ER Document Report ---
ED General - General Chief Complaint: Flu Symptoms Stated Complaint: VOMITING Time Seen by Provider: 10/28/17 06:33 TRAVEL OUTSIDE OF THE [place] IN LAST 30 DAYS: No - HPI Patient complains to provider of: URI symptoms vomiting Notes: Patient is a coming in today for nausea vomiting abdominal cramping throat pain ear pain and feeling otherwise unwell. Denies any recent fevers chills diarrhea. No recent antibiotics or travel. Patient states she is still following up with the health department. Denies any vaginal bleeding. Patient otherwise is resting comfortably upon my evaluation no obvious distress - Related Data Allergies/Adverse Reactions: iodine [Iodine] Allergy (Severe, Verified 09/19/17 04:20) Hives Shellfish * [Shellfish] Allergy (Severe, Verified 09/19/17 04:20) Hives Bleach (Sodium Hypochlorite) Allergy (Verified 09/19/17 04:20) Past Medical History - Social History Smoking Status: Never Smoker Chew tobacco use (# tins/day): No Frequency of alcohol use: Rare Drug Abuse: None Family History: Reviewed & Not Pertinent, Other - Patient is adopted and does not know her biological family Patient has suicidal ideation: No Patient has homicidal ideation: No Renal/ Medical History: Denies: Hx Peritoneal Dialysis GI Medical History: Reports: Hx Gastroesophageal Reflux Disease - Immunizations Immunizations up to date: Yes Hx Diphtheria, Pertussis, Tetanus Vaccination: Yes - during this Review of Systems - Review of Systems Constitutional: See HPI, Other - Nausea vomiting ear pain throat pain EENT: No symptoms reported Cardiovascular: No symptoms reported Respiratory: No symptoms reported Gastrointestinal: No symptoms reported Genitourinary: No symptoms reported Female Genitourinary: No symptoms reported Musculoskeletal: No symptoms reported Skin: No symptoms reported Hematologic/Lymphatic: No symptoms reported Neurological/Psychological: No symptoms reported -: Yes All other systems reviewed and negative Physical Exam - Vital signs Vitals: Temp Pulse Resp BP Pulse Ox 98.0 F 89 20 109/64 98 10/28/17 06:14 10/28/17 06:14 10/28/17 06:14 10/28/17 06:14 10/28/17 06:14 Interpretation: Normal - General General appearance: Appears well, Alert - HEENT Head: Normocephalic, Atraumatic Eyes: Normal Conjunctiva: Normal Cornea: Normal Extraocular movements intact: Yes Eyelashes: Normal Pupils: PERRL Ears: Normal External canal: Normal Tympanic membrane: Normal Nasal: Normal Mouth/Lips: Normal Pharynx: Normal Neck: Normal - Respiratory Respiratory status: No respiratory distress Chest status: Nontender Breath sounds: Normal Chest palpation: Normal - Cardiovascular Rhythm: Regular Heart sounds: Normal auscultation Murmur: No - Abdominal Inspection: Gravid female Distension: No distension Bowel sounds: Normal Tenderness: Nontender Organomegaly: No organomegaly - Back Back: Normal, Nontender - Extremities General upper extremity: Normal inspection, Nontender, Normal color, Normal ROM , Normal temperature General lower extremity: Normal inspection, Nontender, Normal color, Normal ROM , Normal temperature, Normal weight bearing. No: Carloz's sign - Neurological Neuro grossly intact: Yes Cognition: Normal Orientation: AAOx4 Cathy Coma Scale Eye Opening: Spontaneous Cathy Coma Scale Verbal: Oriented Cathy Coma Scale Motor: Obeys Commands Cathy Coma Scale Total: 15 Speech: Normal Motor strength normal: LUE, RUE, LLE, RLE Sensory: Normal - Psychological Associated symptoms: Normal affect, Normal mood - Skin Skin Temperature: Warm Skin Moisture: Dry Skin Color: Normal Course - Re-evaluation Re-evalutation: 10/28/17 08:11 heart tones were at 136-133. Laboratory studies not reveal any significant etiology. Patient will be discharged. Etiology more likely viral syndrome possibly influenza. Patient is afebrile here. Patient was educated on use of Zyrtec for her symptoms also Reglan for her nausea. Patient is continue with Tylenol as directed on the bottle. The patient presents with abdominal pain without signs of peritonitis or other life-threatening or serious etiology. The patient appears stable for discharge and has been instructed to return immediately if the symptoms worsen in any way , or in 8-12hr if not improved for re-evaluation. The patient has been instructed to return if the symptoms worsen or change in any way. - Vital Signs Vital signs: Temp Pulse Resp BP Pulse Ox 98.0 F 89 20 109/64 98 10/28/17 06:14 10/28/17 06:14 10/28/17 06:14 10/28/17 06:14 10/28/17 06:14 - Laboratory Result Diagrams: 10/28/17 06:45 10/28/17 06:45 Laboratory results interpreted by me: 10/28/17 10/28/17 10/28/17 06:45 06:45 06:45 Hgb 10.7 L Hct 32.3 L MCH 26.8 L RDW 16.7 H Creatinine 0.40 L Total Protein 6.1 L Albumin 3.3 L Ur Leukocyte Esterase TRACE H Discharge - Discharge Clinical Impression: Nausea/vomiting in , Acute URI in Condition: Good Disposition: HOME, SELF-CARE Instructions: Vomiting ([facility]), Upper Respiratory Illness ([facility]) Additional Instructions: For nausea and vomiting during I recomment: Start with 10-12.5 mg of pyridoxine (vitamin B6) three times a day for 2 days. If not fully effective, Increase to 12.5 mg of pyridoxine four times a day for 2 days. If not fully effective, Increase to 25 mg of pyridoxine three times a day for 2 days. If not fully effective, Continue 25 mg pyridoxine 3 times a day, and add 12.5 mg of doxylamine before bedtime each day for 2 days. If not fully effective, Continue 25 mg pyridoxine 3 times a day, and take 12.5 mg of doxylamine twice a day. If not fully effective, Continue 25 mg pyridoxine 3 times a day, and take 12.5 mg of doxylamine three times a day. If not fully effective, Continue 25 mg pyridoxine 3 times a day, and 12.5 mg of doxylamine 3 times a day , while adding Emetrol, one to two tablespoons (15-30 cc) taken once or twice a day as needed. (Emetrol is an dhps-cdn-garhzlh mixture of sugar syrups and phosphoric acid [phosphorylated carbohydrate solution]) that acts by soothing the actual wall of the gastrointestinal tract). If not fully effective, Consult with your doctor. Your symptoms are more likely viral please take the Zyrtec as prescribed. Continue with Tylenol for pain control as directed on the bottle. Prescriptions: Cetirizine HCl [Zyrtec] 10 mg PO DAILY #30 tablet Metoclopramide HCl [Reglan] 5 mg PO Q6 #30 tablet Forms: Return to Work
[2017-10-28 08:32] VITALS: BP 110/70
== END 2017-10-28 08:32 | disposition home or self-care (01) ==
LOC: ER 06:06
DX: O26.892 Other specified pregnancy related conditions, second trimester (principal); J06.9 Acute upper respiratory infection, unspecified; R11.2 Nausea with vomiting, unspecified; R10.9 Unspecified abdominal pain; R07.0 Pain in throat; H92.09 Otalgia, unspecified ear; Z3A.18 18 weeks gestation of pregnancy
CPT/HCPCS: 99283; 36415; 83690; 85025; 80053; 81001; J2765; J7030

== ENCOUNTER 2017-10-30 08:05 | Emergency (ER) | payer MEDICAID ==
[2017-10-30 08:10] VITALS: BP 117/68
--- NOTE | 2017-10-30 08:29 | ER Document Report ---
ED Respiratory Problem - General Chief Complaint: Cough Stated Complaint: COUGH Time Seen by Provider: 10/30/17 08:18 Notes: The patient is a 22-year-old female who presents with dry cough, sinus congestion and right-sided rib pain that is worse after she coughs. She is 19 weeks , but is not having abdominal pain or vaginal bleeding. Patient was seen a few days ago and started on Zyrtec, but she did not start that yet. Denies shortness of breath, hemoptysis, leg swelling, abdominal pain, fevers or difficulty swallowing. TRAVEL OUTSIDE OF THE [place] IN LAST 30 DAYS: No - Related Data Allergies/Adverse Reactions: iodine [Iodine] Allergy (Severe, Verified 09/19/17 04:20) Hives Shellfish * [Shellfish] Allergy (Severe, Verified 09/19/17 04:20) Hives Bleach (Sodium Hypochlorite) Allergy (Verified 09/19/17 04:20) Past Medical History - Social History Smoking Status: Unknown if Ever Smoked Chew tobacco use (# tins/day): No Frequency of alcohol use: None Drug Abuse: None Family History: Reviewed & Not Pertinent, Other - Patient is adopted and does not know her biological family Patient has suicidal ideation: No Patient has homicidal ideation: No Renal/ Medical History: Denies: Hx Peritoneal Dialysis GI Medical History: Reports: Hx Gastroesophageal Reflux Disease - Immunizations Immunizations up to date: Yes Hx Diphtheria, Pertussis, Tetanus Vaccination: Yes - during this Review of Systems - Review of Systems Notes: REVIEW OF SYSTEMS: CONSTITUTIONAL: -fevers, -chills EENT: -eye pain, -difficulty swallowing, +nasal congestion CARDIOVASCULAR: +chest pain, -syncope. RESPIRATORY: +cough, -SOB GASTROINTESTINAL: -abdominal pain, -nausea, -vomiting, -diarrhea GENITOURINARY: -dysuria, -hematuria MUSCULOSKELETAL: -back pain, -neck pain SKIN: -rash or skin lesions. HEMATOLOGIC: -easy bruising or bleeding. LYMPHATIC: -swollen, enlarged glands. NEUROLOGICAL: -altered mental status or loss of consciousness, -headache, - neurologic symptoms PSYCHIATRIC: -anxiety, -depression. ALL OTHER SYSTEMS REVIEWED AND NEGATIVE. Physical Exam - Vital signs Vitals: Temp Pulse Resp BP Pulse Ox 98.5 F 81 18 117/68 100 10/30/17 08:09 10/30/17 08:09 10/30/17 08:09 10/30/17 08:09 10/30/17 08:09 - Notes Notes: PHYSICAL EXAMINATION: GENERAL: Well-appearing, well-nourished and in no acute distress. HEAD: Atraumatic, normocephalic. EYES: Pupils equal round and reactive to light, extraocular movements intact, sclera anicteric, conjunctiva are normal. ENT: nares patent, oropharynx clear without exudates. Moist mucous membranes. Sinus congestion. NECK: Normal range of motion, supple without lymphadenopathy LUNGS: Breath sounds clear to auscultation bilaterally and equal. No wheezes rales or rhonchi. HEART: Regular rate and rhythm without murmurs ABDOMEN: Soft, nontender, normoactive bowel sounds. No guarding, no rebound. No masses appreciated. EXTREMITIES: Normal range of motion, no pitting or edema. No cyanosis. NEUROLOGICAL: Cranial nerves grossly intact. Normal speech, normal gait. Normal sensory and motor exams. PSYCH: Normal mood, normal affect. SKIN: Warm, Dry, normal turgor, no rashes or lesions noted. Course - Re-evaluation Re-evalutation: Patient appears well and is in no respiratory distress. Lung sounds are clear and chest x-ray does not show any acute findings. Instructed her about management of her URI and chest wall pain. Given strict return precautions and she understands - Vital Signs Vital signs: Temp Pulse Resp BP Pulse Ox 98.5 F 81 18 117/68 100 10/30/17 08:09 10/30/17 08:09 10/30/17 08:09 10/30/17 08:09 10/30/17 08:09 - Diagnostic Test Radiology reviewed: Image reviewed, Reports reviewed Radiology results interpreted by me: CXR: NAD Discharge - Discharge Clinical Impression: Cough Chest pain Qualifiers: Chest pain type: unspecified Qualified Code(s): R07.9 - Chest pain, unspecified Condition: Stable Disposition: HOME, SELF-CARE Additional Instructions: CHEST PAIN OF UNCLEAR CAUSE: The exact cause of your chest pain isn't clear. Fortunately, there is no evidence of a dangerous medical condition. Further testing may be required to find the source of the pain. Most often, we find that this pain is coming from the chest wall -- the muscles or rib joints in the chest. But chest pain can come from the lung and lung lining, the esophagus, the heart valves or heart lining, and even the stomach or gallbladder. Rest. Eat lightly until the pain is gone. We may prescribe medicine for pain and inflammation. You should call the physician immediately if the pain radiates to the shoulder, jaw or arms; if you start to run a fever or develop a cough; or if you develop shortness of breath, or other new or alarming symptoms. NORMAL EXAM AND WORKUP: At this time, your examination and workup show no significant abnormality. No significant abnormal physical findings were noted. All laboratory, EKG, and imaging (x-ray, CT scans, ultrasound) studies that were ordered show no significant abnormality. Although your examination and all studies that were ordered showed no significant abnormal finding, there are no examinations and no studies that are 100% accurate. There is always the possibility that some abnormality could exist and not be detected with physical examination or within the limits and capabilities of laboratory and other studies. You should return or follow up as you were instructed on your visit today for further evaluation if your symptoms do not resolve. CHEST WALL PAIN: Your chest pain may be coming from the chest wall. This is often caused by straining the muscles or joints in the chest during physical activity, direct trauma, coughing, or vigorous vomiting. Persons with arthritis are especially prone to this type of pain, due to inflammation of the cartilage joints near the breast bone. Occasionally, no cause can be found. Rest from strenuous physical activity. This kind of chest pain is usually made worse by movement of the chest. Depending on the symptoms, we may prescribe medicine for pain, muscle relaxation, and antiinflammatory effects. If the pain is new, and seems to be due to muscle strain, cold packs can help. Otherwise, apply gentle warmth to the painful area for 15 minutes every hour or two. You should call contact the doctor immediately if things change. Further evaluation is needed if you develop a fever or cough, if the nature of the pain changes, or if you become short of breath. FOLLOW-UP CARE: If you have been referred to a physician for follow-up care, call the physician s office for an appointment as you were instructed or within the next two days. If you experience worsening or a significant change in your symptoms, notify the physician immediately or return to the Emergency Department at any time for re-evaluation. UPPER RESPIRATORY ILLNESS: You have a viral infection of the respiratory passages -- a "cold." This common infection causes nasal congestion, drainage, and often sore throat and cough. It is highly contagious. The disease usually lasts about 10 to 14 days. There is no "cure" for the viral infection -- it must run its course. If there is a complication, such as bacterial infection in the nose, sinuses, middle ear, or bronchial tubes, antibiotics may be required. The antibiotics won't affect the virus. Drink plenty of fluids. A humidifier may help. An expectorant medication or decongestant may make you more comfortable. Use acetaminophen or ibuprofen for fever or aches. See the doctor if fever persists over two days, if there is any significant worsening of your symptoms, or if you simply fail to improve as expected. USE OF ACETAMINOPHEN (Tylenol): Acetaminophen may be taken for pain relief or fever control. It's much safer than aspirin, offering a wider range of "safe" dosages. It is safe during . Some brand names are Tylenol, Panadol, Datril, Anacin 3, Tempra, and Liquiprin. Acetaminophen can be repeated every four hours. The following are maximum recommended dosages: >89 pounds or adults 650 mg to 900 mg Acetaminophen can be repeated every four hours. Maximum dose not to exceed 4000 mg a day. SMOKING: If you smoke, you should stop smoking. The tar and chemicals in cigarette smoke are harmful. Smoking has been shown to cause: emphysema chronic bronchitis lung cancer mouth and throat cancer stomach and pancreas cancer premature aging defects In addition, smoking increases ear and lung infections in children of smokers. FOLLOW-UP CARE: If you have been referred to a physician for follow-up care, call the physician s office for an appointment as you were instructed or within the next two days. If you experience worsening or a significant change in your symptoms, notify the physician immediately or return to the Emergency Department at any time for re-evaluation. Prescriptions: Fluticasone Propionate [Flonase Nasal [place] 50 Mcg/[place] 16 gm] 1 spray NASL Q12 #1 inhaler Referrals: MARJAN GREENFIELD MD [Primary Care Provider] - Follow up as needed
--- NOTE | 2017-10-30 08:54 | RADIOLOGY REPORT (SQ) ---
EXAM DESCRIPTION: CHEST PA/LAT COMPLETED DATE/TIME: 10/30/2017 8:40 am REASON FOR STUDY: cough, right rib pain COMPARISON: 04/30/2009 NUMBER OF VIEWS: Two view. TECHNIQUE: Frontal and lateral radiographic views of the chest acquired. LIMITATIONS: None. FINDINGS: LUNGS AND PLEURA: No opacities, masses or pneumothorax. No pleural effusion. MEDIASTINUM AND HILAR STRUCTURES: No masses or contour abnormalities. HEART AND VASCULATURE: Heart normal size. No evidence for failure. BONY STRUCTURES: No acute findings. HARDWARE: None. OTHER: No other significant finding. IMPRESSION: NO SIGNIFICANT RADIOGRAPHIC FINDING IN THE CHEST. TECHNICAL DOCUMENTATION: JOB ID: [id number] [employer]- All Rights Reserved Reading location - IP/workstation name: [email or web address]
== END 2017-10-30 09:04 | disposition home or self-care (01) ==
LOC: ER 08:05
DX: O99.512 Diseases of the respiratory system complicating pregnancy, second trimester (principal); J06.9 Acute upper respiratory infection, unspecified; O26.892 Other specified pregnancy related conditions, second trimester; R07.89 Other chest pain; R05 Cough; R09.81 Nasal congestion; Z3A.19 19 weeks gestation of pregnancy; Z91.013 Allergy to seafood; Z91.048 Other nonmedicinal substance allergy status
CPT/HCPCS: 71046; 99283

== ENCOUNTER 2018-03-25 16:19 | Outpatient (CLI) | payer MEDICAID ==
--- NOTE | 2018-03-25 16:58 | Non Stress Test Report ---
Non Stress Test Datetime Report Generated by CPN: 03/25/2018 16:58 DEMOGRAPHIC EGA NST: 40.2 INDICATION Indication for Study: Other Indication for Study (NST) Other: repeat from the office VITAL SIGNS Temperature - NST: 98.6 RESP - NST: 15 MONITORING Monitor Explained: Monitor Explained; Test Explained; Patient Verbalized Understanding Time on Monitor: 03/25/2018 16:31 Time off Monitor: 03/25/2018 16:56 NST Duration: 25 NST INTERVENTIONS NST Interventions: PO Hydration; Reposition Patient Physician Notified NST: C Livingston CNM BABY A: [id number] BABY A Movement : Present Contraction Frequency : 0 FHR Baseline : 125 Accelerations : 15X15 Decelerations : None Variability : Moderate 6-25bpm NST Review: Meets Criteria for Reactive NST NST Review and Verified By : Kendy Ames RN NSKing Results: Reactive NST REPORT Report Trigger: Send Report
== END 2018-03-25 17:10 | disposition home or self-care (01) ==
LOC: LC 16:19
PROVIDERS: ATTEND Obstetrics & Gynecology Gynecology
PROC: 4A1HXCZ Monitoring of Products of Conception, Cardiac Rate, External Approach (ICD-10-PCS; principal; 2018-03-25)
DX: O48.0 Post-term pregnancy (principal); Z3A.40 40 weeks gestation of pregnancy
CPT/HCPCS: 59025

== ENCOUNTER 2018-03-27 06:35 | Inpatient (IN) | payer MEDICAID ==
[2018-03-27] MEDS ORDERED: MAG HYDROX/AL HYDROX/SIMETH SUSP 30 ML UDCUP PO ONE ×2 (08:04)
[2018-03-27] MEDS ORDERED: MAG HYDROX/AL HYDROX/SIMETH SUSP 30 ML UDCUP ONE (08:16)
[2018-03-27] MEDS ORDERED: RINGERS SOLUTION,LACTATED 1,000 ML IV PRN (08:55)
[2018-03-27] MEDS ORDERED: OXYTOCIN/NORMAL SALINE 20 UNIT/1,000 ML RTUINJ IV PRN ×2 (08:55→16:09)
[2018-03-27] MEDS ORDERED: RINGERS SOLUTION,LACTATED 300 ML IV ONE (08:55)
[2018-03-27] MEDS ORDERED: MISOPROSTOL 0.2 MG TABLET ONE (08:55)
[2018-03-27] MEDS ORDERED: OXYTOCIN/NORMAL SALINE 20 UNIT/1,000 ML RTUINJ ONE (08:56)
[2018-03-27] MEDS ORDERED: LIDOCAINE 1% INJ-PF (10 MG/ML) 30 ML SDV ONE (08:56)
[2018-03-27 09:12] LABS: APPEARANCE,URINE CLOUDY; BILIRUBIN,URINE NEGATIVE (NEGATIVE); GLUCOSE, URINE NEGATIVE (NEGATIVE); KETONES,URINE NEGATIVE (NEGATIVE); LEUKOCYTE ESTERASE,URINE MODERATE (NEGATIVE); NITRITE,URINE NEGATIVE (NEGATIVE); PROTEIN,URINE 30 mg/dL (NEGATIVE); URINE SPECIFIC GRAVITY 1.019
[2018-03-27 09:14] LABS: COLOR,URINE YELLOW
--- NOTE | 2018-03-27 09:17 | Admission Physical ---
Datetime Report Generated by CPN: 03/27/2018 09:17 CURRENT ADMISSION Indication for Induction: Postterm Admit Impression : Postterm, Intrauterine Admit Plan: Initiate Labor Protocol; Initiate Labor Induction Protocol ALLERGIES Medication Allergies: No Medication Allergies: Bleach (Sodium Hypochlorite) (03/27/2018); Shellfish */SV/Hives (03/27/2018); iodine/SV/Hives (03/27/2018) Latex: No Latex Allergies Food Allergies: shellfish Environmental Allergies: iodine and bleach OBSTETRICAL HISTORY EDC: 03/23/2018 00:00 : 5 Para: 4 Term: 0 : 0 SAB: 0 IAB: 0 Ectopic: 0 Livin Cesareans: 0 VBACs: 0 Multiple Births: 0 Gestational Diabetes: Yes Rh Sensitization: No Incompetent Cervix: No VALERIY: No Infertility: No ART Treatment: No Uterine Anomaly: No IUGR: No Hx Previous C/S: No Macrosomia: Yes Hx Loss/Stillborn: No PIH: No Hx : No Placenta Previa/Abruption: No Depression/PP Depression: No PTL/PROM: No Post Hemorrhage: No Current Procedures: Ultrasound; NST SEE RECORDS Alcohol: No Marijuana : No Cocaine: No Other Illicit Drugs: No Cigarettes: Former Smoker. [id number] MEDICAL HISTORY Diabetes: Yes Diabetes Type: Gestational Diabetes Blood Transfusion: No Pulmonary Disease (Asthma, TB): No Hypertension: No Drug Enforcement Administration Agent Surgery: No Heart Disease: No Hosp/Surgery: No Autoimmune Disorder: No Anesthetic Complications: No Kidney Disease: No Abnormal Pap Smear: No Neuro/Epilepsy: No Psychiatric Disorders: No Other Medical Diseases: No Hepatitis/Liver Disease: No Significant Family History: No Varicosities/Phlebitis: No Trauma/Violence : No Thyroid Dysfunction: No INFECTIOUS HISTORY Gonorrhea: No Genital Herpes: No Chlamydia: Yes Tuberculosis: No Syphilis: No Hepatitis: No HIV/AIDS Exposure: No Rash or Viral Illness: No HPV: No Infectious History Comments: Chlamydia x 2 in 2014, x1 2017 YOANNA negative PHYSICAL EXAM General: Normal HEENT: Normal Neurologic: Normal Thyroid: Normal Heart: Normal Lungs: Deferred Breast: Normal Back: Normal Abdomen: Normal Genitourinary Exam: Normal Extremities: Normal DTRs: Normal Pelvic Type: Adequate FETUS A Monitoring: External US FHR- Baseline: 130 Variability: Moderate 6-25bpm Accelerations: 15X15 Decelerations: None FHR Category: Category I Presentation: Vertex Admit Comment: 22 yo admitted for iol postterm EDC8/12/05 EGA 40.4 grand multip history- history of GDM with previous , macrosomia and shoulder dystocia with G3 abdomen soft and nontender FHTs reactive SVE 3/50/-2 favorable EFW 8lb 5 oz start induction reviewed poc with pt and family anticipate / pain management prn PLANS FOR LABOR AND DELIVERY Labor and Delivery: None Pain Management: Epidural Feeding Preference: Formula Benefit of Breast Feed Discussed: Yes Circumcision: Yes INFORMED CONSENT Assignment: Michael Gilbert MD Signature: with User ID: [email or web address] : with User ID: [email or web address]
[2018-03-27 09:34] LABS: URINE AMPHETAMINES SCREEN NEGATIVE; URINE BARBITURATES SCREEN NEGATIVE; URINE BENZODIAZEPINES SCREEN NEGATIVE; URINE COCAINE SCREEN NEGATIVE; URINE MARIJUANA (THC) SCREEN NEGATIVE; URINE METHADONE SCREEN NEGATIVE; URINE PHENCYCLIDINE SCREEN NEGATIVE
[2018-03-27] MEDS ORDERED: FENTANYL/BUPIVACAINE/NS/PF 300 MCG/150 ML RTUINJ EPI ONE (10:20)
[2018-03-27] MEDS ORDERED: EPHEDRINE SULFATE INJ 50 MG/1 ML AMPULE ONE (10:20)
[2018-03-27] MEDS ORDERED: BUPIVACAINE HCL 0.25 % INJ/PF (2.5 MG/1 ML) 30 ML VIAL ONE (10:21)
[2018-03-27 10:28] LABS: HEMATOCRIT 24.8 % (36.0-47.0); MEAN CORPUSCULAR HEMOGLOBIN 22.9 pg (27.0-33.4); MEAN CORPUSCULAR HGB CONC 31.5 g/dL (32.0-36.0); MEAN CORPUSCULAR VOLUME 73 fl (80-97); PLATELET COUNT 175 10^3/uL (150-450); RED BLOOD COUNT 3.41 10^6/uL (3.72-5.28); WHITE BLOOD COUNT 8.2 10^3/uL (4.0-10.5)
[2018-03-27 10:44] LABS: HEMOGLOBIN 7.8 g/dL (12.0-15.5)
[2018-03-27 11:01] LABS: ABSOLUTE LYMPHOCYTES# (MANUAL) 2.5 10^3/uL (0.5-4.7); ABSOLUTE MONOCYTES # (MANUAL) 0.4 10^3/uL (0.1-1.4); ABSOLUTE NEUTROPHILS# (MANUAL) 5.2 10^3/uL (1.7-8.2); ANISOCYTOSIS 2+; BAND NEUTROPHILS % (MANUAL) 2 % (3-5); BASOPHILS % (MANUAL) 0 % (0-2); EOSINOPHILS % (MANUAL) 1 % (0-6); HYPOCHROMASIA SLIGHT; LYMPHOCYTES % (MANUAL) 30 % (13-45); MONOCYTES % (MANUAL) 5 % (3-13); PLATELET COMMENT ADEQUATE; PLATELET LARGE PRESENT; POLYCHROMASIA SLIGHT; SEGMENTED NEUTROPHILS % (MAN) 62 % (42-78); TOTAL CELLS COUNTED 100; TOXIC GRANULATION SLIGHT
[2018-03-27] MEDS ORDERED: PROMETHAZINE HCL INJ 25 MG/1 ML VIAL IV PRN (16:09)
[2018-03-27] MEDS ORDERED: MEASLES,MUMPS&RUBELLA VACC/PF 0.5 ML VIAL SUBCUT PRN (16:09)
[2018-03-27] MEDS ORDERED: MAGNESIUM HYDROXIDE SUSP 30 ML UDCUP PO PRN (16:09)
[2018-03-27] MEDS ORDERED: NA PHOS,M-B/NA PHOS,DI-BA (ADULT) 133 ML ENEMA PR PRN (16:09)
[2018-03-27] MEDS ORDERED: BENZOCAINE/MENTHOL AEROSOL SPRAY 56 ML TOP PRN (16:09)
[2018-03-27] MEDS ORDERED: DIPHENHYDRAMINE HCL 25 MG CAPSULE PO PRN (16:09)
[2018-03-27] MEDS ORDERED: DIPH/PERTUSS(ACELL)/TETANUS VAC/PF 0.5 ML SYR (>=10YO) IM PRN (16:09)
[2018-03-27] MEDS ORDERED: PSEUDOEPHEDRINE HCL 30 MG TABLET PO PRN (16:09)
[2018-03-27] MEDS ORDERED: ACETAMINOPHEN 650 MG SUPP.RECT PR PRN (16:09)
[2018-03-27] MEDS ORDERED: ACETAMINOPHEN WITH CODEINE #3 TABLET PO PRN (16:09)
[2018-03-27] MEDS ORDERED: PROMETHAZINE HCL 25 MG SUPP.RECT PR PRN (16:09)
[2018-03-27] MEDS ORDERED: PROMETHAZINE HCL 25 MG TABLET PO PRN (16:09)
[2018-03-27] MEDS ORDERED: GLYCERIN/WITCH HAZEL LEAF 1 EACH MED..PAD TP PRN (16:09)
[2018-03-27] MEDS ORDERED: ZOLPIDEM TARTRATE 5 MG TABLET PO PRN (16:09)
[2018-03-27] MEDS ORDERED: DIBUCAINE 1% OINTMENT 28 GM TP PRN (16:09)
[2018-03-27] MEDS ORDERED: NORMAL SALINE 250 ML IV PRN ×2 (16:32)
[2018-03-27 18:08] LABS: HEMATOCRIT 29.6 % (36.0-47.0); HEMOGLOBIN 9.2 g/dL (12.0-15.5); MEAN CORPUSCULAR HEMOGLOBIN 22.7 pg (27.0-33.4); MEAN CORPUSCULAR HGB CONC 30.9 g/dL (32.0-36.0); MEAN CORPUSCULAR VOLUME 74 fl (80-97); PLATELET COUNT 188 10^3/uL (150-450); RED BLOOD COUNT 4.03 10^6/uL (3.72-5.28); RED CELL DISTRIBUTION WIDTH 19.4 % (11.5-14.0); WHITE BLOOD COUNT 12.5 10^3/uL (4.0-10.5)
[2018-03-27] MEDS ORDERED: ACETAMINOPHEN WITH CODEINE #3 TABLET ONE (19:09)
[2018-03-27] MEDS: ACETAMINOPHEN WITH CODEINE #3 TABLET PO PRN (19:11)
--- NOTE | 2018-03-27 19:20 | Delivery Summary ---
Del Sum A-C Datetime Report Generated by CPN: 03/27/2018 19:20 DELIVERY PERSONNEL DELIVERY PERSONNEL: [id number] Delivery Doctor:: Sue Maria CNM Labor and Delivery Nurse:: eRbekah MEDRANO RNgasoline tester Nurse:: Noreen Rose RN Additional Personnel: : Etta Ames RN MATERNAL INFORMATION Delivery Anesthesia: Epidural Medications After Delivery: Pitocin Bolus-Please Comment; Pitocin Drip 20 Units/1000ml NSS; Other-Please Comment Meds After Delivery Comment: CYTOTEC 1000 MCG KS Maternal Complications: None Provider Comments: pt complete urge to push epidural turned off bed prepared for delivery delivery of viable male to abdomen tactile stimulation elicits spont cry cord clamped cut by mother of patient cord blood obtained placenta intact uterus boggy uterus explored minimal amount of clots expelled cytotec 1000 mcg per rectum hemostasis achieved EBL 300 cc no lacerations pt bonding well with reviewed hgb less than 8.0 recommend 1 unit of prbc transfusion/ discussed with pt and mother consent received LABOR SUMMARY EDC: 03/23/2018 00:00 No. Babies in Womb: 1 Attempted: No Labor Anesthesia: Epidural LABOR INFORMATION Reason for Induction: Post Dates; Other Reason for Induction- Other: H/O SHOULDER DYSTOCIA Onset of Labor: 03/27/2018 09:55 Complete Dilatation: 03/27/2018 15:53 Cervical Ripening Agents: Cytotec @ 1000 Oxytocin: Induction Group B Beta Strep: Negative Antibiotics # of Doses: 0 Steroids Given: None Reason Steroids Not Administered: Not Applicable MEMBRANES Membranes Rupture Method: Artificial Rupture of Membranes: 03/27/2018 09:55 Length of Rupture (hr): 6.23 Amniotic Fluid Color: Clear Amniotic Fluid Amount: Moderate Amniotic Fluid Odor: Normal STAGES OF LABOR Stage 1 hr: 5 Stage 1 min: 58 Stage 2 hr: 0 Stage 2 min: 16 Stage 3 hr: 0 Stage 3 min: 7 Total Time in Labor hr: 6 Total Time in Labor min: 21 VAGINAL DELIVERY Episiotomy: None Laceration #1: None Laceration Extension #1: N/A Laceration Repair: Not Applicable Sponge Count Correct: N/A Sharps Count Correct: N/A CSECTION DELIVERY Primary Indication: N/A Secondary Indication: N/A CSection Incidence: N/A Labor: N/A Elective: N/A CSection Incision: N/A BABY A INFORMATION Infant Delivery Date/Time: 03/27/2018 16:09 Method of Delivery: Vaginal Born in Route : No : N/A Forceps: N/A Vacuum Extraction: N/A Shoulder Dystocia : No PRESENTATION/POSITION BABY A Presentation: Cephalic Cephalic Presentation: Vertex Vertex Position: Left Occipital Anterior Breech Presentation: N/A PLACENTA INFORMATION BABY A Placenta Delivery Time : 03/27/2018 16:16 Placenta Method of Delivery: Spontaneous Placenta Status: Delivered SCORES BABY A Heart Rate 1 min: >100 bpm Resp Effort 1 min: Good Cry Reflex Irritability 1 min: Cough or Sneeze or Pulls Away Muscle Tone 1 min: Active Motion Color 1 min: Blue/Pale Resuscitation Effort 1 min: Tactile Stimulation; Oxygen SCORE 1 MIN: 8 Heart Rate 5 min: >100 bpm Resp Effort 5 min: Good Cry Reflex Irritability 5 min: Cough or Sneeze or Pulls Away Muscle Tone 5 min: Active Motion Color 5 min: Body [place], Extremities Blue Resuscitation Effort 5 min: Tactile Stimulation SCORE 5 MIN: 9 INFANT INFORMATION BABY A Gestational Age at Delivery: 40.4 Gestational Status: Full Term- 39- 40.6 Weeks Infant Outcome : Liveborn Infant Condition : Stable Sex: Male IDENTIFICATION BABY A Infant Verification Date/Time: 03/27/2018 16:48 ID Band Number: [id number] Mother's Name Verified: Yes RN Verifying : MSlava Judd, RN, C. Ames, RN WEIGHT/LENGTH BABY A Birthweight (gm): 4260 Weight (lb): 9 Infant Weight (oz): 6 Infant Length (in): 21.00 Length (cm): 53.34 CORD INFORMATION BABY A No. Cord Vessels: 3 Nuchal Cord : Around Neck x1, Loose Cord Blood Taken: Yes-For Eval (Mom's Blood Type - or O+) Infant Suction: Mouth; Nose ASSESSMENT BABY A Infant Complications: None; Other Infant Complications- Other: TERMINAL MECONIUM Physical Findings at Delivery: Within Normal Limits Respirations: Appears Normal Skin to Skin: Yes Skin to Skin Time (min): 10 Weight Reduction Specialist/ALS Called : No Care By: Gareth AMES RN Transferred To: Remains with Mother BABY B INFORMATION : N/A SIGNATURES Assignment: Michael Gilbert MD Signature: with User ID: [email or web address] : with User ID: [email or web address]
[2018-03-27] MEDS: IBUPROFEN 800 MG TABLET PO SCH (22:38)
[2018-03-27] MEDS: FAMOTIDINE 20 MG TABLET PO SCH (22:38)
[2018-03-28] MEDS: IBUPROFEN 800 MG TABLET PO SCH ×3 (05:15→21:59)
[2018-03-28 07:48] LABS: HEMOGLOBIN 8.5 g/dL (12.0-15.5); MEAN CORPUSCULAR HEMOGLOBIN 23.2 pg (27.0-33.4); MEAN CORPUSCULAR HGB CONC 31.5 g/dL (32.0-36.0); MEAN CORPUSCULAR VOLUME 74 fl (80-97); PLATELET COUNT 163 10^3/uL (150-450); RED BLOOD COUNT 3.66 10^6/uL (3.72-5.28); RED CELL DISTRIBUTION WIDTH 19.2 % (11.5-14.0); WHITE BLOOD COUNT 10.7 10^3/uL (4.0-10.5)
[2018-03-28] MEDS: DOCUSATE SODIUM 100 MG CAPSULE PO SCH ×3 (08:18→18:05)
[2018-03-28] MEDS: FERROUS SULFATE 325 MG TABLET PO SCH ×3 (08:18→18:05)
[2018-03-28] MEDS: ACETAMINOPHEN WITH CODEINE #3 TABLET PO PRN ×2 (09:00→20:47)
[2018-03-28] MEDS: SENNOSIDES/DOCUSATE 8.6-50 MG 1 EACH TABLET PO SCH (09:03)
[2018-03-28] MEDS: PRENATAL VITAMIN W DHA CAPSULE PO SCH (09:03)
[2018-03-28] MEDS: FAMOTIDINE 20 MG TABLET PO SCH ×2 (09:03→21:59)
--- NOTE | 2018-03-28 11:23 | PDOC PROGRESS REPORT ---
Subjective-OB Progress Note for:: 03/28/18 Subjective: Doing well, c/o of pain in back where epidural was placed, has not felt like this before, voiding, bottle feeding, eating well Physical Exam (OB) Vital Signs: Temp Pulse Resp BP Pulse Ox 97.9 F 60 16 111/61 99 03/28/18 07:43 03/28/18 07:43 03/28/18 07:43 03/28/18 07:43 03/28/18 07:43 Intake & Output 03/27/18 03/28/18 03/29/18 06:59 06:59 06:59 Weight 105.8 kg - Lochia Lochia Amount: Scant < 10 ml Lochia Color: Rubra/Red - Abdomen Description: Soft Hernia Present: No Fundal Description: Firm, Midline Fundal Height: u/u - u/2 Objective-Diagnostic Laboratory: 03/28/18 07:16 03/27/18 03/28/18 17:57 07:16 WBC 12.5 H 10.7 H RBC 4.03 3.66 L Hgb 9.2 L 8.5 L Hct 29.6 L 27.0 L MCV 74 L 74 L MCH 22.7 L 23.2 L MCHC 30.9 L 31.5 L RDW 19.4 H 19.2 H Plt Count 188 163 Assessment and Plan(PN) - Assessment and Plan (1) Poor compliance Is this a current diagnosis for this admission?: Yes (2) GDM (gestational diabetes mellitus) Qualifiers: Gestational diabetes mellitus control: diet-controlled Is this a current diagnosis for this admission?: Yes (4) Positive GBS test Is this a current diagnosis for this admission?: Yes (5) Delivery normal Is this a current diagnosis for this admission?: Yes (6) Anemia Qualifiers: Anemia type: iron deficiency Is this a current diagnosis for this admission?: Yes - Time Spent with Patient Time with patient: Less than 15 minutes Medications reviewed and adjusted accordingly: Yes - Disposition Anticipated Discharge: Home Within: within 24 hours
[2018-03-29] MEDS: ACETAMINOPHEN WITH CODEINE #3 TABLET PO PRN (01:32)
[2018-03-29] MEDS: IBUPROFEN 800 MG TABLET PO SCH (05:44)
[2018-03-29] MEDS: FAMOTIDINE 20 MG TABLET PO SCH (10:09)
[2018-03-29] MEDS: PRENATAL VITAMIN W DHA CAPSULE PO SCH (10:10)
[2018-03-29] MEDS: SENNOSIDES/DOCUSATE 8.6-50 MG 1 EACH TABLET PO SCH (10:10)
[2018-03-29] MEDS: FERROUS SULFATE 325 MG TABLET PO SCH (10:10)
[2018-03-29] MEDS: DOCUSATE SODIUM 100 MG CAPSULE PO SCH (10:10)
--- NOTE | 2018-03-29 10:20 | PDOC DISCHARGE SUMMARY ---
Final Diagnosis Discharge Date: 03/29/18 - Final Diagnosis (1) Anemia Is this a current diagnosis for this admission?: Yes (2) Delivery normal Is this a current diagnosis for this admission?: Yes (3) GDM (gestational diabetes mellitus) Is this a current diagnosis for this admission?: Yes (4) Insufficient antepartum care Is this a current diagnosis for this admission?: Yes (5) Positive GBS test Is this a current diagnosis for this admission?: Yes Discharge Data - Discharge Medication Home Medications: Vit/Iron Fum/Folic AC [ Tablet] 1 tab PO DAILY 08/29/15 Ferrous Sulfate [Feosol 325 mg Tablet] 325 mg PO BID #60 tablet 02/25/17 Reason(s) for Admission: Induction of Labor Procedures: NST Intrapartum Procedure(s): Spontaneous Vaginal Delivery - Diagnosis Test Laboratory: Temp Pulse Resp BP Pulse Ox 98.2 F 96 18 120/55 L 94 03/29/18 07:46 03/29/18 07:46 03/29/18 07:46 03/29/18 07:46 03/29/18 07:46 03/27/18 03/27/18 03/27/18 06:46 09:27 17:57 RBC 3.41 L 4.03 Hgb 7.8 L 9.2 L Hct 24.8 L 29.6 L Urine Opiates Screen NEGATIVE 03/28/18 07:16 RBC 3.66 L Hgb 8.5 L Hct 27.0 L Urine Opiates Screen - Discharge information/Instructions Discharge Activity: Balance Activity w/Rest, Pelvic Rest Discharge Diet: Regular Disposition: HOME, SELF-CARE Follow up with: [facility] in: 3, 4, Weeks
[2018-03-29 11:09] VITALS: BP 124/52
== END 2018-03-29 12:04 | disposition home or self-care (01) | DRG 774 ==
LOC: LR 06:35 → 2S 19:54
PROVIDERS: ADMIT Obstetrics & Gynecology; ATTEND Obstetrics & Gynecology
PROC: 10E0XZZ Delivery of Products of Conception, External Approach (ICD-10-PCS; principal; 2018-03-27)
DX: O48.0 Post-term pregnancy (principal); O67.9 Intrapartum hemorrhage, unspecified; D62 Acute posthemorrhagic anemia; O24.420 Gestational diabetes mellitus in childbirth, diet controlled; O99.334 Smoking (tobacco) complicating childbirth; O99.02 Anemia complicating childbirth; O69.81X0 Labor and delivery complicated by cord around neck, without compression, not applicable or unspecified; O77.0 Labor and delivery complicated by meconium in amniotic fluid; F17.211 Nicotine dependence, cigarettes, in remission; Z3A.40 40 weeks gestation of pregnancy; Z37.0 Single live birth
CPT/HCPCS: 36415; 80307; 81005; 85025; 85027; 86592; 86850; 86900; 86901; 94760; J2590; J3010; J3490

== ENCOUNTER 2018-06-09 04:15 | Emergency (ER) | payer MEDICAID ==
[2018-06-09 04:23] VITALS: BP 121/76
--- NOTE | 2018-06-09 04:31 | ER Document Report ---
ED Extremity Problem, Lower - General Chief Complaint: Knee Injury Stated Complaint: FALL Time Seen by Provider: 06/09/18 04:25 Mode of Arrival: Ambulatory Information source: Patient TRAVEL OUTSIDE OF THE [place] IN LAST 30 DAYS: No - HPI Patient complains to provider of: Injury, Pain, Swelling Location: Knee Occurred: Other - 2 weeks Where: Indoors Onset/Duration: Persistent Quality of pain: Achy, Pressure, Throbbing Severity: Moderate Pain Level: 3 Context: Fell, Twisted Recent injury: Yes Associated symptoms: Painful ambulation Exacerbated by: Movement Relieved by: Nothing Notes: Patient is a 22-year-old female presenting to the emergency room today complaining of right knee pain stemming from an incident 2 weeks ago when she slipped on a loose area rug injuring the knee possibly twisting it in the fall, she has been having pain with ambulation since then and then had another slip and fall yesterday evening which exacerbated her symptoms once again, she is reporting some hip pain to but that is much more chronic in nature and likely exacerbated from her recent knee injury, she has been taking ibuprofen at home sporadically for her symptoms with minimal intermittent relief, she denies any numbness or tingling or injury elsewhere - Related Data Allergies/Adverse Reactions: iodine [Iodine] Allergy (Severe, Verified 06/09/18 04:41) Hives Shellfish * [Shellfish] Allergy (Severe, Verified 06/09/18 04:41) Hives Bleach (Sodium Hypochlorite) Allergy (Verified 06/09/18 04:41) Past Medical History - General Information source: Patient - Social History Smoking Status: Unknown if Ever Smoked Family History: Reviewed & Not Pertinent, Other - Patient is adopted and does not know her biological family Renal/ Medical History: Denies: Hx Peritoneal Dialysis GI Medical History: Reports: Hx Gastroesophageal Reflux Disease - Immunizations Immunizations up to date: Yes Hx Diphtheria, Pertussis, Tetanus Vaccination: Yes - during this Review of Systems - Review of Systems Constitutional: No symptoms reported EENT: No symptoms reported Cardiovascular: No symptoms reported Respiratory: No symptoms reported Gastrointestinal: No symptoms reported Genitourinary: No symptoms reported Female Genitourinary: No symptoms reported Musculoskeletal: See HPI Skin: No symptoms reported Hematologic/Lymphatic: No symptoms reported Neurological/Psychological: No symptoms reported -: Yes All other systems reviewed and negative Physical Exam - Vital signs Vitals: Temp Pulse Resp BP Pulse Ox 97.9 F 84 18 121/76 95 06/09/18 04:21 06/09/18 04:21 06/09/18 04:21 06/09/18 04:21 06/09/18 04:21 - Notes Notes: - General General appearance: Appears well, Alert In distress: None - HEENT Head: Normocephalic, Atraumatic Eyes: Normal Conjunctiva: Normal Extraocular movements intact: Yes Eyelashes: Normal Pupils: PERRL - Respiratory Respiratory status: No respiratory distress - Cardiovascular Rhythm: Regular - Abdominal Inspection: Normal - Back Back: Normal - Extremities General upper extremity: Normal inspection General lower extremity: Right knee with mild swelling, tenderness to palpate anteriorly over the patella, pain with range of motion testing, distal sensation and motor is intact - Neurological Neuro grossly intact: Yes Orientation: AAOx4 Cathy Coma Scale Eye Opening: Spontaneous [place] Coma Scale Verbal: Oriented [place] Coma Scale Motor: Obeys Commands Cathy Coma Scale Total: 15 - Psychological Associated symptoms: Normal affect, Normal mood - Skin Skin Temperature: Warm Skin Moisture: Dry Skin Color: Normal Course - Re-evaluation Re-evalutation: 06/09/18 04:54 Imaging findings discussed with patient at bedside which are unremarkable, symptoms consistent with likely soft tissue injury of the right knee, patient will be placed in an Tres wrap and provided with instructions for follow-up with orthopedics, advised to ice and elevate, take Motrin 600 mg 3 times a day return if symptoms worsen, patient acknowledges understanding and agreement with this plan - Vital Signs Vital signs: Temp Pulse Resp BP Pulse Ox 97.9 F 84 18 121/76 95 06/09/18 04:21 06/09/18 04:21 06/09/18 04:21 06/09/18 04:21 06/09/18 04:21 - Diagnostic Test Radiology reviewed: Image reviewed, Reports reviewed Procedures - Immobilization Right Knee Time completed: 04:55 Pre-Proc Neuro Vasc Exam: Normal Immobilizer type: Tres wrap Performed by: PCT Post-Proc Neuro Vasc Exam: Normal Alignment checked and good: Yes Discharge - Discharge Clinical Impression: Right knee sprain Qualifiers: Encounter type: initial encounter Involved ligament of knee: unspecified ligament Qualified Code(s): S83.91XA - Sprain of unspecified site of right knee , initial encounter Condition: Stable Disposition: HOME, SELF-CARE Instructions: Ice & Elevation ([facility]), Suspected Internal Knee Injury ([facility]), Sprained Knee ([facility]) Additional Instructions: Follow up with your primary care provider and an orthopedic surgeon in one to 2 days. Return to the emergency room immediately if symptoms worsen or any additional concerns. Ice and elevate the affected extremity. Limit weightbearing. Prescriptions: Ibuprofen [Motrin 600 Mg Tablet] 600 mg PO TID #30 tablet Referrals: DAKOTA THRASHER MD [ACTIVE STAFF] - Follow up as needed
[2018-06-09] MEDS ORDERED: IBUPROFEN 600 MG TABLET PO ONE (04:32)
--- NOTE | 2018-06-09 05:00 | RADIOLOGY REPORT (SQ) ---
CLINICAL DATA: 22-year-old female status post fall with right knee pain anterior and lateral TECHNICAL DATA: Four x-ray views of the right knee were performed on 06/09/2018 at 5:10 AM. COMPARISONS: None FINDINGS: There is no evidence of fracture or dislocation. There is no significant arthritis or degenerative change. No focal lytic or sclerotic bone lesions are seen. Bone mineralization is normal No focal soft tissue abnormalities are identified. IMPRESSION: No evidence of acute osseous injury involving the right knee.
== END 2018-06-09 05:02 | disposition home or self-care (01) ==
LOC: ER 04:15
DX: S83.91XA Sprain of unspecified site of right knee, initial encounter (principal); M25.561 Pain in right knee; W01.0XXA Fall on same level from slipping, tripping and stumbling without subsequent striking against object, initial encounter
CPT/HCPCS: 99283; 73564; J3490

== ENCOUNTER 2018-12-16 15:23 | Emergency (ER) | payer SELFPAY ==
--- NOTE | 2018-12-16 16:44 | ER Document Report ---
ED Medical Screen (RME) - General Chief Complaint: Flank Pain Stated Complaint: FLANK PAIN Time Seen by Provider: 12/16/18 16:35 Mode of Arrival: Ambulatory Information source: Patient Notes: Patient is a 23-year-old female comes to the emergency room with multiple complaints. Her primary complaint is increasing shortness of breath. Second primary complaint is back pain. Patient states that she is 4 and she is 23 years old. States that she is literally had babies back to back. She also states that after each child her back pain is increased substantially. The last was March 2018. She states that she is getting more more short of breath along with this back pain. More the back pain hurts the more she appears to have someone crack it for her and the worst the shortness of breath gets. Patient's primary back pain is in her mid thoracic area between the shoulder blades and lower thoracic spine with also having right-sided flank pain with radiation to the lateral rib area. She denies any other medical problems. She does state that she smoked and has been on the line rhytid that smoking may cause the back pain so she stopped smoking 2 weeks ago. She did black and ribs at that time. Patient also states at the end of the physical examination that she has had increasing frequent times when she gets up too fast and has syncopal episodes as well. TRAVEL OUTSIDE OF THE [place] IN LAST 30 DAYS: No - HPI Onset: Last week - Chronic with an acute exacerbation Onset/Duration: Gradual, Persistent, Worse Quality of pain: Sharp, Stabbing, Throbbing Severity: Moderate Pain Level: 4 Associated Symptoms: Cough (nonproductive), Dizzy/lightheaded Exacerbated by: Standing, Coughing Relieved by: Denies Similar symptoms previously: Yes Recently seen / treated by doctor: No - Related Data Smoking: Cigarettes Frequency of alcohol use: Rare Drug Abuse: None Allergies/Adverse Reactions: iodine [Iodine] Allergy (Severe, Verified 12/16/18 15:28) Hives Shellfish * [Shellfish] Allergy (Severe, Verified 12/16/18 15:28) Hives Bleach (Sodium Hypochlorite) Allergy (Verified 12/16/18 15:28) Past Medical History - General Information source: Patient - Social History Cigarette use (# per day): Yes - Less than half a pack Frequency of alcohol use: Rare Drug Abuse: None Lives with: Family Family history: Reviewed & Not Pertinent Renal/ Medical History: Denies: Hx Peritoneal Dialysis GI Medical History: Reports: Hx Gastroesophageal Reflux Disease - Immunizations Immunizations up to date: Yes Hx Diphtheria, Pertussis, Tetanus Vaccination: Yes - during this Review of Systems - Review of Systems Constitutional: No symptoms reported EENT: No symptoms reported Cardiovascular: No symptoms reported Respiratory: See HPI, Short of breath Gastrointestinal: No symptoms reported Genitourinary: No symptoms reported Female Genitourinary: No symptoms reported Musculoskeletal: Back pain Skin: No symptoms reported Hematologic/Lymphatic: No symptoms reported Neurological/Psychological: No symptoms reported -: Yes All other systems reviewed and negative Physical Exam - Vital signs Vitals: Temp Pulse Resp BP Pulse Ox 98.9 F 82 16 126/81 H 96 12/16/18 15:44 12/16/18 15:44 12/16/18 15:44 12/16/18 15:44 12/16/18 15:44 Interpretation: Hypertensive - Notes Notes: PHYSICAL EXAMINATION: GENERAL: Well-appearing, well-nourished and in no acute distress. Uncomfortable appearing HEAD: Atraumatic, normocephalic. LUNGS: Breath sounds clear to auscultation bilaterally and equal. No wheezes rales or rhonchi. HEART: Regular rate and rhythm without murmurs ABDOMEN: Soft, nontender, nondistended abdomen. No guarding, no rebound. No masses appreciated. Patient does display some right-sided flank pain to percussion. Negative Yadav's Female : deferred Musculoskeletal: Examination of patient's area of complaint is her mid thoracic spine between the shoulder blades has some mild reproducible tenderness to palpation. There is no offset felt on palpation. There is some right-sided flank pain to percussion. Patient displays full range of motion without any deficits. NEUROLOGICAL: Normal speech, normal gait. Normal sensory, motor exams PSYCH: Normal mood, normal affect. SKIN: Warm, Dry, normal turgor, no rashes or lesions noted. Course - Vital Signs Vital signs: Temp Pulse Resp BP Pulse Ox 98.9 F 82 16 126/81 H 96 12/16/18 15:44 12/16/18 15:44 12/16/18 15:44 12/16/18 15:44 12/16/18 15:44
[2018-12-16 17:11] LABS: ABSOLUTE EOSINOPHILS # (AUTO) 0.2 10^3/uL (0.0-0.6); ABSOLUTE LYMPHOCYTES (AUTO) 2.1 10^3/uL (0.5-4.7); ABSOLUTE MONOCYTES (AUTO) 0.5 10^3/uL (0.1-1.4); ABSOLUTE NEUT (AUTO) 5.1 10^3/uL (1.7-8.2); BASOPHILS % (AUTO) 0.5 % (0-2); EOSINOPHILS % (AUTO) 2.4 % (0-6); HEMATOCRIT 39.9 % (36.0-47.0); HEMOGLOBIN 12.8 g/dL (12.0-15.5); LYMPHOCYTES % (AUTO) 26.5 % (13-45); MEAN CORPUSCULAR HEMOGLOBIN 26.4 pg (27.0-33.4); MEAN CORPUSCULAR HGB CONC 32.1 g/dL (32.0-36.0); MEAN CORPUSCULAR VOLUME 82 fl (80-97); MONOCYTES % (AUTO) 6.8 % (3-13); PLATELET COUNT 356 10^3/uL (150-450); RED BLOOD COUNT 4.86 10^6/uL (3.72-5.28); RED CELL DISTRIBUTION WIDTH 15.5 % (11.5-14.0); SEGMENTED NEUTROPHILS % (AUTO) 63.8 % (42-78); TOTAL CELLS COUNTED % (AUTO) 100 %; WHITE BLOOD COUNT 7.9 10^3/uL (4.0-10.5)
[2018-12-16 17:12] LABS: APPEARANCE,URINE CLEAR; BILIRUBIN,URINE NEGATIVE (NEGATIVE); COLOR,URINE STRAW; GLUCOSE, URINE NEGATIVE (NEGATIVE); KETONES,URINE NEGATIVE (NEGATIVE); LEUKOCYTE ESTERASE,URINE NEGATIVE (NEGATIVE); NITRITE,URINE NEGATIVE (NEGATIVE); PROTEIN,URINE NEGATIVE (NEGATIVE); URINE SPECIFIC GRAVITY 1.015; UROBILINOGEN,URINE NEGATIVE mg/dL (<2.0)
--- NOTE | 2018-12-16 17:27 | RADIOLOGY REPORT (SQ) ---
EXAM DESCRIPTION: CHEST 2 VIEWS COMPLETED DATE/TIME: 12/16/2018 5:02 pm REASON FOR STUDY: sob COMPARISON: 10/30/2017 EXAM PARAMETERS: NUMBER OF VIEWS: two views TECHNIQUE: Digital Frontal and Lateral radiographic views of the chest acquired. RADIATION DOSE: NA LIMITATIONS: none FINDINGS: LUNGS AND PLEURA: No opacities, masses or pneumothorax. No pleural effusion. MEDIASTINUM AND HILAR STRUCTURES: No masses or contour abnormalities. HEART AND VASCULAR STRUCTURES: Heart normal size. No evidence for failure. BONES: No acute findings. HARDWARE: None in the chest. OTHER: No other significant finding. IMPRESSION: NO ACUTE RADIOGRAPHIC FINDING IN THE CHEST. TECHNICAL DOCUMENTATION: JOB ID: [id number] [employer] All Rights Reserved Reading location - IP/workstation name: [email or web address]
--- NOTE | 2018-12-16 17:28 | RADIOLOGY REPORT (SQ) ---
EXAM DESCRIPTION: T SPINE AP/LAT COMPLETED DATE/TIME: 12/16/2018 5:02 pm REASON FOR STUDY: pain COMPARISON: None. NUMBER OF VIEWS: Two views. TECHNIQUE: AP and lateral radiographic images acquired of the thoracic spine. LIMITATIONS: None. FINDINGS: MINERALIZATION: Normal. ALIGNMENT: Normal. No scoliosis. VERTEBRAE: No fracture or bone lesion. Maintained height, normal segmentation. DISCS: No significant loss of height or significant narrowing. No large osteophytes. HARDWARE: None in the spine. MEDIASTINUM AND SOFT TISSUES: Normal heart size and aortic contour. No soft tissue abnormality. VISUALIZED LUNG CARDENAS: Clear. OTHER: No other significant finding. IMPRESSION: NO SIGNIFICANT RADIOGRAPHIC FINDING IN THE THORACIC SPINE. TECHNICAL DOCUMENTATION: JOB ID: [id number] [employer]- All Rights Reserved Reading location - IP/workstation name: [email or web address]
[2018-12-16 17:31] LABS: ALANINE AMINOTRANSFERASE 14 U/L (9-52); ALBUMIN 4.5 g/dL (3.5-5.0); ALKALINE PHOSPHATASE 84 U/L (38-126); ANION GAP 15 (5-19); ASPARTATE AMINO TRANSFERASE 17 U/L (14-36); BILIRUBIN,DIRECT 0.2 mg/dL (0.0-0.4); BILIRUBIN,TOTAL 0.2 mg/dL (0.2-1.3); BLOOD UREA NITROGEN 7 mg/dL (7-20); CALCIUM 9.8 mg/dL (8.4-10.2); CARBON DIOXIDE 25 mmol/L (22-30); CHLORIDE 102 mmol/L (98-107); GLUCOSE 84 mg/dL (75-110); LIPASE 72.8 U/L (23-300); POTASSIUM 4.4 mmol/L (3.6-5.0); SODIUM 142.2 mmol/L (137-145); TOTAL PROTEIN 7.7 g/dL (6.3-8.2)
[2018-12-16 18:43] VITALS: BP 109/64
--- NOTE | 2018-12-16 19:36 | ER Document Report ---
ED General - General Chief Complaint: Flank Pain Stated Complaint: FLANK PAIN Time Seen by Provider: 12/16/18 16:35 Mode of Arrival: Ambulatory Notes: Patient is a 23-year-old female comes to the emergency room with multiple complaints. Her primary complaint is increasing shortness of breath. Second primary complaint is back pain. Patient states that she is 4 and she is 23 years old. States that she is literally had babies back to back. She also states that after each child her back pain is increased substantially. The last was March 2018. She states that she is getting more more short of breath along with this back pain. More the back pain hurts the more she appears to have someone crack it for her and the worst the shortness of breath gets. Patient's primary back pain is in her mid thoracic area between the shoulder blades and lower thoracic spine with also having right-sided flank pain with radiation to the lateral rib area. She denies any other medical problems. She does state that she smoked and has been on the line rhytid that smoking may cause the back pain so she stopped smoking 2 weeks ago. She did black and ribs at that time. Patient also states at the end of the physical examination that she has had increasing frequent times when she gets up too fast and has syncopal episodes as well. TRAVEL OUTSIDE OF THE [place] IN LAST 30 DAYS: No - HPI Onset: Other - Complaints very in duration of time from back pain after every to acute pain past week to shortness of breath the past month etc. Onset/Duration: Gradual, Persistent Quality of pain: Cramping, Sharp, Stabbing, Throbbing Severity: Moderate Pain Level: 5 Associated symptoms: Chest pain, Nonproductive cough, Shortness of breath Exacerbated by: Standing, Movement, Walking, Coughing, Deep breathing Relieved by: Denies Similar symptoms previously: Yes Recently seen / treated by doctor: No - Related Data Allergies/Adverse Reactions: iodine [Iodine] Allergy (Severe, Verified 12/16/18 15:28) Hives Shellfish * [Shellfish] Allergy (Severe, Verified 12/16/18 15:28) Hives Bleach (Sodium Hypochlorite) Allergy (Verified 12/16/18 15:28) Past Medical History - General Information source: Patient - Social History Smoking Status: Current Some Day Smoker Cigarette use (# per day): Yes - Less than half a pack Frequency of alcohol use: Rare Drug Abuse: None Lives with: Family Family History: Reviewed & Not Pertinent, Other - Patient is adopted and does not know her biological family Patient has suicidal ideation: No Patient has homicidal ideation: No Renal/ Medical History: Denies: Hx Peritoneal Dialysis GI Medical History: Reports: Hx Gastroesophageal Reflux Disease - Immunizations Immunizations up to date: Yes Hx Diphtheria, Pertussis, Tetanus Vaccination: Yes - during this Review of Systems - Review of Systems Constitutional: No symptoms reported EENT: No symptoms reported Cardiovascular: See HPI, Chest pain Respiratory: See HPI, Cough, Hurts to breathe, Short of breath. denies: Hemoptysis, Sputum, Stridor, Wheezing Gastrointestinal: No symptoms reported Genitourinary: No symptoms reported Female Genitourinary: No symptoms reported Musculoskeletal: No symptoms reported Skin: No symptoms reported Hematologic/Lymphatic: No symptoms reported Neurological/Psychological: No symptoms reported, Weakness -: Yes All other systems reviewed and negative Physical Exam - Vital signs Vitals: Temp Pulse Resp BP Pulse Ox 98.9 F 82 16 126/81 H 96 12/16/18 15:44 12/16/18 15:44 12/16/18 15:44 12/16/18 15:44 12/16/18 15:44 Interpretation: Hypertensive - Notes Notes: PHYSICAL EXAMINATION: GENERAL: well-nourished and in no acute distress. Slightly uncomfortable appearing slightly anxious appearing. HEAD: Atraumatic, normocephalic. EYES: Pupils equal round and reactive to light, extraocular movements intact, conjunctiva are normal. ENT: Nares patent, oropharynx clear without exudates. Moist mucous membranes. NECK: Normal range of motion, supple without lymphadenopathy LUNGS: Breath sounds clear to auscultation bilaterally and equal. No wheezes rales or rhonchi. Palpation of patient's chest area does show she has some mild tenderness to palpation along the right anterior lateral ribs mostly in the lower portions. She does have some sternal tenderness to palpation as well. HEART: Regular rate and rhythm without murmurs ABDOMEN: Soft, nontender, nondistended abdomen. No guarding, no rebound. No masses appreciated. Female : deferred Musculoskeletal: Normal range of motion, no pitting or edema. No cyanosis. NEUROLOGICAL: Normal speech, normal gait. Normal sensory, motor exams PSYCH: Normal mood, normal affect. SKIN: Warm, Dry, normal turgor, no rashes or lesions noted. Course - Re-evaluation Re-evalutation: 12/16/18 19:40 Patient's work-up was normal. Chest x-ray and thoracic spine showed no signs of acute problems. Patient's lab were normal as well. And her d-dimer was 27 which is also normal. Going back in discussion problems with the patient she has 5 kids at age 24. She is a [id number] mother and her fianc/boyfriend works as a tugboat mate. So he is gone 24 every 48 hours. So patient is left to do fend for herself. 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 Though she does grocery shopping on her own picking up food supplies etc. lifting carrying doing pulling. Unable to reproduce a lot of this pain and discomfort and I have talked her about this and stating to her that a lot of this discomfort can be caused because she is on the go continuously from morning until she actually stops at night and as when she feels most of her pain discomfort. I am going to try patient on a steroid taper and a little muscle relaxer and have instructed her not to take it when she does not have back up with the kids in the house. She expressed total understanding of this. Tonight her mother will be home with her. I have told her that she really needs to follow-up with the [facility] for further investigation. Her "passing out" does not appear to be a syncopal episode from after explaining to me that when she jumps up and runs out of bed she sometimes gets weak head. She does not actually pass out - Vital Signs Vital signs: Temp Pulse Resp BP Pulse Ox 99.0 F 84 16 109/64 100 12/16/18 18:40 12/16/18 18:40 12/16/18 18:40 12/16/18 18:40 12/16/18 18:40 - Laboratory Result Diagrams: 12/16/18 16:50 12/16/18 16:50 Laboratory results interpreted by me: 12/16/18 12/16/18 16:50 16:50 MCH 26.4 L RDW 15.5 H Creatinine 0.48 L Discharge - Discharge Clinical Impression: Costochondritis, acute, Weakness generalized Condition: Good Disposition: HOME, SELF-CARE Instructions: Costochondritis ([facility]), Rib Contusion ([facility]) Additional Instructions: Medication as prescribed. As we also discussed your body is gone through extensive changes since you have informed me and indicated to me that she been almost every year since the age of 18. Your body needs a rest as much as you can give it having 5 young children. Follow[facility]. Highly suggest that at this point try to avoid for at least a year to your body have a rest. Consult with the [facility] or use precautions when you are sexually active. Monitor your diet and eat healthy. Monitor your blood pressure as well possible. Return to ER if you hav e any concerns or problems. Prescriptions: Cyclobenzaprine HCl [Flexeril 10 mg Tablet] 10 mg PO TID PRN 7 Days #21 tablet PRN Reason: Prednisone 10 mg PO ASDIR 6 Days #1 tab.ds.pk Forms: Smoking Cessation Education
[2018-12-16] MEDS ORDERED: KETOROLAC TROMETHAMINE 60 MG/2 ML SDV IM ONE (19:48)
== END 2018-12-16 20:11 | disposition home or self-care (01) ==
LOC: ER 15:23
DX: M94.0 Chondrocostal junction syndrome [Tietze] (principal); R53.1 Weakness; R06.02 Shortness of breath; M54.6 Pain in thoracic spine; R05 Cough; R07.1 Chest pain on breathing
CPT/HCPCS: 99284; 96372; 36415; 83690; 85025; 81025; 80053; 81001; 85379; 71046; 72070; J1885

== ENCOUNTER 2019-01-23 15:29 | Emergency (ER) | payer SELFPAY ==
[2019-01-23] MEDS ORDERED: IBUPROFEN 800 MG TABLET PO ONE (16:40)
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
--- NOTE | 2019-01-23 17:23 | RADIOLOGY REPORT (SQ) ---
EXAM DESCRIPTION: ANKLE RIGHT COMPLETE COMPLETED DATE/TIME: 01/23/2019 5:11 pm REASON FOR STUDY: pain s/p fall COMPARISON: 02/02/2016 NUMBER OF VIEWS: Three views. TECHNIQUE: AP, lateral, and oblique radiographic images acquired of the right ankle. LIMITATIONS: None. FINDINGS: MINERALIZATION: Normal. BONES: No acute fracture or dislocation. No worrisome bone lesions. JOINTS: No effusions. SOFT TISSUES: No soft tissue swelling. No foreign body. OTHER: No other significant finding. IMPRESSION: NEGATIVE STUDY OF THE RIGHT ANKLE. NO RADIOGRAPHIC EVIDENCE OF ACUTE INJURY. TECHNICAL DOCUMENTATION: JOB ID: [id number] [employer]- All Rights Reserved Reading location - IP/workstation name: [email or web address]
--- NOTE | 2019-01-23 17:24 | RADIOLOGY REPORT (SQ) ---
EXAM DESCRIPTION: HIP RIGHT AP/LATERAL COMPLETED DATE/TIME: 01/23/2019 5:11 pm REASON FOR STUDY: pain s/p fall COMPARISON: None. NUMBER OF VIEWS: Two views. TECHNIQUE: AP pelvis and additional frog-leg view of the right hip. LIMITATIONS: None. FINDINGS: MINERALIZATION: Normal. RIGHT HIP: No fracture or dislocation. No worrisome bone lesions. LEFT HIP: No fracture or dislocation. No worrisome bone lesions. PUBIS AND ISCHIUM: No fracture. PELVIS: No fracture. SACRUM: No fracture or dislocation. No worrisome bone lesions. LOWER LUMBAR SPINE: No fracture or dislocation. No worrisome bone lesions. No significant disc disea se. SOFT TISSUES: No findings. OTHER: No other significant finding. IMPRESSION: NEGATIVE STUDY OF THE RIGHT HIP. NO RADIOGRAPHIC EVIDENCE OF ACUTE INJURY. TECHNICAL DOCUMENTATION: JOB ID: [id number] [employer]- All Rights Reserved Reading location - IP/workstation name: [email or web address]
--- NOTE | 2019-01-23 17:24 | RADIOLOGY REPORT (SQ) ---
EXAM DESCRIPTION: KNEE RIGHT 4 VIEWS COMPLETED DATE/TIME: 01/23/2019 5:11 pm REASON FOR STUDY: pain s/p fall COMPARISON: None. NUMBER OF VIEWS: Four views. TECHNIQUE: AP, lateral, and both oblique radiographic images acquired of the right knee. LIMITATIONS: None. FINDINGS: MINERALIZATION: Normal. BONES: No acute fracture or dislocation. No worrisome bone lesions. JOINT: No effusion. SOFT TISSUES: No soft tissue swelling. No radio-opaque foreign body. OTHER: No other significant finding. IMPRESSION: NEGATIVE STUDY OF THE RIGHT KNEE. NO RADIOGRAPHIC EVIDENCE OF ACUTE INJURY. TECHNICAL DOCUMENTATION: JOB ID: [id number] [email or web address]- All Rights Reserved Reading location - IP/workstation name: [email or web address]
[2019-01-23 18:18] VITALS: BP 115/69
== END 2019-01-23 18:18 | disposition home or self-care (01) ==
LOC: ER 15:29
DX: M25.571 Pain in right ankle and joints of right foot (principal); M25.561 Pain in right knee; M25.551 Pain in right hip; F17.200 Nicotine dependence, unspecified, uncomplicated
CPT/HCPCS: 99283; 73610; 73502; 73564; L1902

== ENCOUNTER 2019-03-11 20:00 | Emergency (ER) | payer SELFPAY ==
[2019-03-11] MEDS ORDERED: ACETAMINOPHEN 325 MG TABLET PO ONE (21:00)
--- NOTE | 2019-03-11 21:24 | ER Document Report ---
ED General - General Chief Complaint: Foot Injury Stated Complaint: POSSIBLE BROKEN LEFT FOOT Time Seen by Provider: 03/11/19 21:24 Primary Care Provider: JUWAN MUÑOZ MD [ACTIVE STAFF] - Follow up in 3-5 days TRAVEL OUTSIDE OF THE [place] IN LAST 30 DAYS: No - HPI Notes: 23 year old female to the ED with C/O left foot and ankle pain after sustaining a fall and twisting the foot and ankle today. States she was sitting on a picnic table at a park and when she genesis to get off of it, she stepped wrong and her foot when under her. States she has attempted to ambulate on the foot several times, but cannot. Admits to swelling and bruising. Denies any other injuries. - Related Data Allergies/Adverse Reactions: iodine [Iodine] Allergy (Severe, Verified 01/23/19 15:31) Hives Shellfish * [Shellfish] Allergy (Severe, Verified 01/23/19 15:31) Hives Bleach (Sodium Hypochlorite) Allergy (Verified 01/23/19 15:31) Past Medical History - General Information source: Patient - Social History Smoking Status: Never Smoker Frequency of alcohol use: Occasional Drug Abuse: None Family History: Reviewed & Not Pertinent, Other - Patient is adopted and does not know her biological family Renal/ Medical History: Denies: Hx Peritoneal Dialysis GI Medical History: Reports: Hx Gastroesophageal Reflux Disease - Immunizations Immunizations up to date: Yes Hx Diphtheria, Pertussis, Tetanus Vaccination: Yes - during this Review of Systems - Review of Systems Constitutional: No symptoms reported EENT: No symptoms reported Cardiovascular: No symptoms reported Respiratory: No symptoms reported Gastrointestinal: No symptoms reported Genitourinary: No symptoms reported Musculoskeletal: See HPI, Joint pain - left foot and ankle pain after mechanical fall, Joint swelling, Ankle swelling Skin: See HPI, Change in color - bruising to the left foot and ankle Neurological/Psychological: No symptoms reported -: Yes All other systems reviewed and negative Physical Exam - Vital signs Vitals: Temp Pulse Resp BP Pulse Ox 98.2 F 96 12 117/71 98 03/11/19 20:17 03/11/19 20:17 03/11/19 20:17 03/11/19 20:17 03/11/19 20:17 Interpretation: Normal - General General appearance: Appears well, Alert - HEENT Head: Normocephalic, Atraumatic Eyes: Normal Pupils: PERRL - Respiratory Respiratory status: No respiratory distress Chest status: Nontender Breath sounds: Normal Chest palpation: Normal - Cardiovascular Rhythm: Regular Heart sounds: Normal auscultation Murmur: No - Extremities Ankle: Tender, Edema Foot: Tender, Ecchymosis, Edema Notes: to the left foot and ankle there is edema and ecchymosis to the anterior ankle and to the dorsum of the foot. There is TTP over the talus region and onto the dorsum of the foot. DP pulses intact bilaterally, cap refill is less than 2 sec. patient can wiggle all toes. She has 5/5 strength intact in dorsiflexion and plantar flexion against resistance -- she does have increased pain in these movements and does have some reduced ROM because of the pain. Course - Re-evaluation Re-evalutation: Impression: Left ankle and foot sprain. XR negative per radiology reading. Patient cannot bear weight due to pain; will splint her and place on crutches. Will have her follow with ortho for further management. Will give pain control. She agrees with the plan. Noted splint applied by Tech. Patient is neurovascularly intact post splint placement -- states that the splint helps with her pain. - Vital Signs Vital signs: Temp Pulse Resp BP Pulse Ox 98.1 F 87 18 116/65 98 03/11/19 23:30 03/11/19 23:30 03/11/19 23:30 03/11/19 23:30 03/11/19 23:30 - Diagnostic Test Radiology reviewed: Image reviewed, Reports reviewed Discharge - Discharge Clinical Impression: Other sprain of left foot, initial encounter Left ankle sprain Qualifiers: Encounter type: initial encounter Involved ligament of ankle: unspecified ligament Qualified Code(s): S93.402A - Sprain of unspecified ligament of left ankle, initial encounter Condition: Stable Disposition: HOME, SELF-CARE Instructions: Ice Packs ([facility]), Sprain ([facility]), Sprained Ankle ([facility]) Additional Instructions: USE CRUTCHES. NO WEIGHT BEARING. FOLLOW UP WITH ORTHOPEDIST WITHOUT FAIL. CALL TOMORROW TO SET UP AN APPOINTMENT. TAKE MEDICINES PRESCRIBED. RETURN IF WORSENING PAIN, REDNESS, FEVERS, CHEST PAIN, SHORTNESS OF BREATH OR ANY OTHER CONCERNS. Prescriptions: Tramadol HCl [Ultram 50 mg Tablet] 50 mg PO Q8H PRN #10 tab PRN Reason: Referrals: JUWAN MUÑOZ MD [ACTIVE STAFF] - Follow up in 3-5 days
--- NOTE | 2019-03-11 22:00 | RADIOLOGY REPORT (SQ) ---
EXAM DESCRIPTION: XR FOOT 3 OR MORE VIEWS COMPLETED DATE/TME: 03/11/2019 20:41 CLINICAL HISTORY: 23 years ,Female bone tenderness COMPARISON: None. TECHNIQUE: LEFT foot, Three view FINDINGS: No acute fractures or dislocations are identified. No osseous destructive lesions. No radiopaque foreign object noted. No significant ankle effusion noted. IMPRESSION: No acute fracture or dislocation is identified.
[2019-03-11] MEDS ORDERED: TRAMADOL HCL 50 MG TABLET PO ONE (22:28)
[2019-03-12 00:04] VITALS: BP 116/65
== END 2019-03-11 23:45 | disposition home or self-care (01) ==
LOC: ER 20:00
PROC: 2W3RX1Z Immobilization of Left Lower Leg using Splint (ICD-10-PCS; principal; 2019-03-11)
DX: S93.402A Sprain of unspecified ligament of left ankle, initial encounter (principal); S93.602A Unspecified sprain of left foot, initial encounter; M79.89 Other specified soft tissue disorders; M79.672 Pain in left foot; M25.572 Pain in left ankle and joints of left foot; X50.1XXA Overexertion from prolonged static or awkward postures, initial encounter
CPT/HCPCS: 99283

== ENCOUNTER 2019-06-21 19:52 | Emergency (ER) | payer SELFPAY ==
[2019-06-21] MEDS ORDERED: ACETAMINOPHEN 325 MG TABLET PO ONE (20:05)
--- NOTE | 2019-06-21 20:08 | ER Document Report ---
ED Medical Screen (RME) - General Chief Complaint: Fall Stated Complaint: FALL-RIGHT KNEE AND HIP PAIN Time Seen by Provider: 06/21/19 20:04 Mode of Arrival: Wheelchair Information source: Patient Notes: 3-year-old female presents to ED for complaint of right knee and hip pain. She states she slipped and fell in the shower about 415 this afternoon. She states she has a torn ligament in that knee already and she felt some pop when she fell. She states her last menstrual period was 05/17/2019. She has not had any Tylenol or Motrin since she fell. She states she does smoke 5 black miles a day does not drink or use any drugs. Patient is alert and oriented respirations regular nonlabored speaking in full sentences. I have greeted and performed a rapid initial assessment of this patient. A comprehensive ED assessment and evaluation of the patient, analysis of test results and completion of medical decision making process will be conducted by an additional ED providers. TRAVEL OUTSIDE OF THE [place] IN LAST 30 DAYS: No - Related Data Allergies/Adverse Reactions: iodine [Iodine] Allergy (Severe, Verified 01/23/19 15:31) Hives Shellfish * [Shellfish] Allergy (Severe, Verified 01/23/19 15:31) Hives Bleach (Sodium Hypochlorite) Allergy (Verified 01/23/19 15:31) Past Medical History - Social History Family history: Reviewed & Not Pertinent Renal/ Medical History: Denies: Hx Peritoneal Dialysis GI Medical History: Reports: Hx Gastroesophageal Reflux Disease - Immunizations Immunizations up to date: Yes Hx Diphtheria, Pertussis, Tetanus Vaccination: Yes - during this Physical Exam - Vital signs Vitals: Temp Pulse Resp BP Pulse Ox 98.2 F 86 18 126/72 H 100 06/21/19 19:56 06/21/19 19:56 06/21/19 19:56 06/21/19 19:56 06/21/19 19:56 Course - Vital Signs Vital signs: Temp Pulse Resp BP Pulse Ox 98.2 F 86 18 126/72 H 100 06/21/19 19:56 06/21/19 19:56 06/21/19 19:56 06/21/19 19:56 06/21/19 19:56
--- NOTE | 2019-06-21 22:04 | RADIOLOGY REPORT (SQ) ---
EXAM DESCRIPTION: XR HIP 2 OR MORE VIEWS COMPLETED DATE/TME: 06/21/2019 20:06 CLINICAL HISTORY: 23 years, Female, fall pain hip and knee if hcg is neg COMPARISON: 01/23/2019 right hip NUMBER OF VIEWS: 2 TECHNIQUE: 2 view right hip LIMITATIONS: None. FINDINGS: Negative for fracture or dislocation. Soft tissues are unremarkable. Hip joints are preserved IMPRESSION: Negative exam copyright 2010 [employer]- All Rights Reserved
--- NOTE | 2019-06-21 22:05 | RADIOLOGY REPORT (SQ) ---
EXAM DESCRIPTION: XR KNEE 4 OR MORE VIEWS COMPLETED DATE/TME: 06/21/2019 20:06 CLINICAL HISTORY: 23 years, Female, fall pain hip and knee if hcg is neg COMPARISON: 01/23/2019 right knee NUMBER OF VIEWS: 4 TECHNIQUE: 4 views right knee LIMITATIONS: None. FINDINGS: Negative for fracture or dislocation. Soft tissues are unremarkable IMPRESSION: Negative exam copyright 2010 [employer]- All Rights Reserved
[2019-06-21] MEDS ORDERED: IBUPROFEN 600 MG TABLET PO ONE (22:19)
--- NOTE | 2019-06-21 22:22 | ER Document Report ---
HPI - HPI Time Seen by Provider: 06/21/19 20:04 Pain Level: 5 Context: Patient is a 23-year-old female who presents the emergency department with a chief complaint of right knee pain. She was in the shower and the toilet flushed and the water turned to hot, and when she went to go turn the water to cold, did up slipping. She states that she felt like her knee Had popped out of place and popped back in place. She was not able to walk after the incident. - ROS Systems Reviewed and Negative: Yes All other systems reviewed and negative - CONSTITUTIONAL Constitutional: DENIES: Fever, Chills - REPRODUCTIVE Reproductive: DENIES: : - MUSCULOSKELETAL Musculoskeletal: REPORTS: Extremity pain - Right knee, right hip - DERM Skin Color: Normal Skin Problems: None Past Medical History - General Information source: Patient - Social History Smoking Status: Current Every Day Smoker Family History: Reviewed & Not Pertinent, Other - Patient is adopted and does not know her biological family Patient has suicidal ideation: No Patient has homicidal ideation: No Renal/ Medical History: Denies: Hx Peritoneal Dialysis GI Medical History: Reports: Hx Gastroesophageal Reflux Disease - Immunizations Immunizations up to date: Yes Hx Diphtheria, Pertussis, Tetanus Vaccination: Yes - during this Vertical Provider Document - CONSTITUTIONAL Agree With Documented VS: Yes Exam Limitations: No Limitations General Appearance: No Apparent Distress - INFECTION CONTROL TRAVEL OUTSIDE OF THE [place] IN LAST 30 DAYS: No - HEENT HEENT: Atraumatic, Normocephalic, PERRLA - NECK Neck: Normal Inspection - RESPIRATORY Respiratory: No Respiratory Distress - CARDIOVASCULAR Cardiovascular: Regular Rate, Regular Rhythm Pulses: Normal: Posterior tibial, Dorsalis pedis - MUSCULOSKELETAL/EXTREMETIES Musculoskeletal/Extremeties: Tender - Right knee, right hip, No Edema. negative: FROM - Decreased to right lower extremity due to pain., Eccymosis - NEURO Level of Consciousness: Awake, Alert, Appropriate Motor/Sensory: No Sensory Deficit - DERM Integumentary: Warm, Dry, No Rash Course - Re-evaluation Re-evalutation: 06/21/19 X-rays are unremarkable at this time. Based off the patient's explanation of what had happened, it sounds like she had a patellar dislocation that relocated it by itself. She will be placed in Tres wrap, knee immobilizer, and given crutches. I instructed patient on rest, ice, elevation, and compression. [facility] in regards to this visit. Patient was also instructed on ibuprofen and Tylenol for pain relief. She is in agreement with this plan. Follow-up precautions were given. Verbal discharge instructions were given to the patient. They verbalized understanding. They are stable for discharge. - Vital Signs Vital signs: Temp Pulse Resp BP Pulse Ox 98.2 F 86 18 126/72 H 100 06/21/19 19:56 06/21/19 19:56 06/21/19 19:56 06/21/19 19:56 06/21/19 19:56 Procedures - Immobilization Right hip and knee Pre-Proc Neuro Vasc Exam: Normal Immobilizer type: Tres wrap, Knee immobilizer Performed by: RN Post-Proc Neuro Vasc Exam: Normal, Unchanged from pre-exam Alignment checked and good: Yes Discharge - Discharge Clinical Impression: Right hip pain Fall Qualifiers: Encounter type: initial encounter Qualified Code(s): W19.XXXA - Unspecified fall, initial encounter Right knee pain Qualifiers: Chronicity: acute Qualified Code(s): M25.561 - Pain in right knee Condition: Stable Disposition: HOME, SELF-CARE Additional Instructions: You are seen today in the emergency department for right knee pain and right hip pain. It sounds like you had a patellar dislocation that relocated. Your x- rays are normal. You are being placed in a knee immobilizer. Please take ibuprofen 600 mg and acetaminophen 1000 g every 6 hours for your pain. Also use crutches. Make sure you rest, apply ice to the area(20 minutes on, 20 minutes off). You can follow-up with one of the free clinics below as needed. If you continue to have pain within the next 2 weeks, you can follow-up with orthopedics. Referrals: [facility] [Provider Group] - Follow up as needed [facility] [Provider Group] - Follow up as needed EARNEST RUSSELL MD [ACTIVE PROVISIONAL STAFF] - Follow up as needed
[2019-06-21 23:01] VITALS: BP 115/67
== END 2019-06-21 22:30 | disposition home or self-care (01) ==
LOC: ER 19:52
DX: M25.561 Pain in right knee (principal); M25.551 Pain in right hip; W01.0XXA Fall on same level from slipping, tripping and stumbling without subsequent striking against object, initial encounter; Y92.002 Bathroom of unspecified non-institutional (private) residence as the place of occurrence of the external cause; F17.200 Nicotine dependence, unspecified, uncomplicated
CPT/HCPCS: 36415; 84703; 73502; 73564; L1830; 99283

== ENCOUNTER 2019-08-24 15:33 | Emergency (ER) | payer SELFPAY ==
[2019-08-24 16:26] VITALS: BP 100/65
[2019-08-24 17:11] LABS: A TYPE INFLUENZA AG NEGATIVE (NEGATIVE); B INFLUENZA AG NEGATIVE (NEGATIVE)
--- NOTE | 2019-08-24 17:47 | RADIOLOGY REPORT (SQ) ---
EXAM DESCRIPTION: KNEE RIGHT 4 VIEWS COMPLETED DATE/TIME: 08/24/2019 5:23 pm REASON FOR STUDY: R knee pain s/p twisting injury COMPARISON: 06/21/19. NUMBER OF VIEWS: Four views. TECHNIQUE: AP, lateral, and both oblique radiographic images acquired of the right knee. LIMITATIONS: None. FINDINGS: MINERALIZATION: Normal. BONES: No acute fracture or dislocation. No worrisome bone lesions. JOINT: No effusion. SOFT TISSUES: No soft tissue swelling. No radio-opaque foreign body. OTHER: No other significant finding. IMPRESSION: NEGATIVE STUDY OF THE RIGHT KNEE. NO RADIOGRAPHIC EVIDENCE OF ACUTE INJURY. TECHNICAL DOCUMENTATION: JOB ID: [id number] 1909 [employer]- All Rights Reserved Reading location - IP/workstation name: [id number]
--- NOTE | 2019-08-24 18:48 | ER Document Report ---
HPI - HPI Time Seen by Provider: 08/24/19 16:25 Pain Level: 5 Notes: Otherwise healthy 23-year-old female presenting with multiple complaints. Complaint #1 is pain to her right knee. Patient reports history of possible internal knee injury, states that she twisted it again last night. She also complains of body aches, fever, dry throat, nausea and diarrhea. Occasional cough. Denies any vomiting. - CONSTITUTIONAL Constitutional: REPORTS: Fever, Chills - RESPIRATORY Respiratory: REPORTS: Coughing - REPRODUCTIVE Reproductive: DENIES: : - MUSCULOSKELETAL Musculoskeletal: REPORTS: Extremity pain - right knee Past Medical History - General Information source: Patient - Social History Smoking Status: Current Every Day Smoker Chew tobacco use (# tins/day): No Frequency of alcohol use: None Drug Abuse: None Family History: Reviewed & Not Pertinent, Other - Patient is adopted and does not know her biological family Patient has suicidal ideation: No Patient has homicidal ideation: No Renal/ Medical History: Denies: Hx Peritoneal Dialysis GI Medical History: Reports: Hx Gastroesophageal Reflux Disease - Immunizations Immunizations up to date: Yes Hx Diphtheria, Pertussis, Tetanus Vaccination: Yes - during this Vertical Provider Document - CONSTITUTIONAL Notes: PHYSICAL EXAMINATION: GENERAL: Well-appearing, well-nourished and in no acute distress. HEAD: Atraumatic, normocephalic. EYES: Pupils equal round extraocular movements intact, conjunctiva are normal. ENT: Nares patent with clear rhinorrhea, oropharynx mildly erythematous but without exudates, no evidence of tonsillar swelling or peritonsillar abscess. NECK: Normal range of motion LUNGS: No respiratory distress, lung sounds clear and equal bilaterally. Musculoskeletal: Limited range of motion at right knee, swelling noted, no erythema or heat noted. Strong popliteal pulse, strong dorsalis pedis pulse, normal motor and sensation. NEUROLOGICAL: Normal speech, normal gait. PSYCH: Normal mood, normal affect. SKIN: Warm, Dry, normal turgor, no rashes or lesions noted. - INFECTION CONTROL TRAVEL OUTSIDE OF THE [place] IN LAST 30 DAYS: No Course - Re-evaluation Re-evalutation: Influenza was negative. X-ray of the knee was also negative as outlined below. Patient has a knee immobilizer and crutches at home, she will place these back on her knee and she will follow-up with orthopedics. Conservative treatment measures discussed regarding flulike symptoms. Patient is in agreement with plan. - Vital Signs Vital signs: Temp Pulse Resp BP Pulse Ox 101.8 F H 117 H 20 100/65 98 08/24/19 16:25 08/24/19 16:25 08/24/19 16:25 08/24/19 16:25 08/24/19 16:25 Discharge - Discharge Clinical Impression: Flu-like symptoms Right knee pain Qualifiers: Chronicity: acute Qualified Code(s): M25.561 - Pain in right knee Condition: Stable Disposition: HOME, SELF-CARE Additional Instructions: As discussed, your knee x-ray was negative. Your influenza test today was negative. You are having a lot of symptoms that are consistent with the flu. I would continue taking ibuprofen and Tylenol for your body aches, fever pains. This should also help with your knee pain. Use the knee immobilizer that you have at home and the crutches. Follow-up with Ortho if your knee does not improve. Return to the emergency department with any new or worsening symptoms Forms: Return to Work Referrals: KELLEE ARELLANO JR, DO [ACTIVE PROVISIONAL STAFF] - Follow up as needed GARCIA HOBSON DO [ACTIVE STAFF] - Follow up as needed
== END 2019-08-24 19:16 | disposition home or self-care (01) ==
LOC: ER 15:33
DX: M25.561 Pain in right knee (principal); M79.10 Myalgia, unspecified site; R50.9 Fever, unspecified; R11.0 Nausea; R19.7 Diarrhea, unspecified; R05 Cough; F17.200 Nicotine dependence, unspecified, uncomplicated
CPT/HCPCS: 87804; 99283

== ENCOUNTER 2019-12-29 18:49 | Emergency (ER) | payer SELFPAY ==
[2019-12-29 19:39] LABS: APPEARANCE,URINE SLIGHTLY-CLOUDY; BILIRUBIN,URINE NEGATIVE (NEGATIVE); COLOR,URINE YELLOW; GLUCOSE, URINE NEGATIVE (NEGATIVE); KETONES,URINE NEGATIVE (NEGATIVE); LEUKOCYTE ESTERASE,URINE MODERATE (NEGATIVE); NITRITE,URINE NEGATIVE (NEGATIVE); PROTEIN,URINE NEGATIVE (NEGATIVE); URINE SPECIFIC GRAVITY 1.023; UROBILINOGEN,URINE NEGATIVE mg/dL (<2.0)
[2019-12-29 19:49] LABS: ABSOLUTE EOSINOPHILS # (AUTO) 0.2 10^3/uL (0.0-0.6); ABSOLUTE LYMPHOCYTES (AUTO) 2.2 10^3/uL (0.5-4.7); ABSOLUTE MONOCYTES (AUTO) 0.5 10^3/uL (0.1-1.4); ABSOLUTE NEUT (AUTO) 4.8 10^3/uL (1.7-8.2); BASOPHILS % (AUTO) 0.3 % (0-2); EOSINOPHILS % (AUTO) 2.2 % (0-6); HEMATOCRIT 38.6 % (36.0-47.0); HEMOGLOBIN 12.9 g/dL (12.0-15.5); LYMPHOCYTES % (AUTO) 28.3 % (13-45); MEAN CORPUSCULAR HEMOGLOBIN 28.1 pg (27.0-33.4); MEAN CORPUSCULAR HGB CONC 33.5 g/dL (32.0-36.0); MEAN CORPUSCULAR VOLUME 84 fl (80-97); MONOCYTES % (AUTO) 6.9 % (3-13); PLATELET COUNT 305 10^3/uL (150-450); RED CELL DISTRIBUTION WIDTH 16.6 % (11.5-14.0); SEGMENTED NEUTROPHILS % (AUTO) 62.3 % (42-78); TOTAL CELLS COUNTED % (AUTO) 100 %; WHITE BLOOD COUNT 7.7 10^3/uL (4.0-10.5)
--- NOTE | 2019-12-29 20:59 | ER Document Report ---
ED GI/ - General Chief Complaint: Vag Bleeding, +preg <12wks Stated Complaint: VAGINAL BLEEDING/ABDOMINAL PAIN Time Seen by Provider: 12/29/19 20:55 Mode of Arrival: Ambulatory Information source: Patient Notes: 24-year-old female no previous medical problems presents to the emergency room c omplaining of pelvic cramping and bleeding that started 3 days ago. States she is only lightly spotting today. she had an IUD placed the end of September which she then had taken out the end of October due to persistent bleeding. was given pills to stop bleeding but continued to bleed until approximately 02 December. She is a 6 para 5. Not currently using control. TRAVEL OUTSIDE OF THE [place] IN LAST 30 DAYS: No - Related Data Allergies/Adverse Reactions: iodine [Iodine] Allergy (Severe, Verified 12/29/19 19:03) Hives Shellfish * [Shellfish] Allergy (Severe, Verified 12/29/19 19:03) Hives Bleach (Sodium Hypochlorite) Allergy (Verified 12/29/19 19:03) Home Medications: denies Past Medical History - General Information source: Patient - Social History Smoking Status: Current Every Day Smoker Chew tobacco use (# tins/day): No Frequency of alcohol use: Social Drug Abuse: None Family History: Reviewed & Not Pertinent, Other - Patient is adopted and does not know her biological family Patient has homicidal ideation: No Renal/ Medical History: Denies: Hx Peritoneal Dialysis GI Medical History: Reports: Hx Gastroesophageal Reflux Disease - Immunizations Immunizations up to date: Yes Hx Diphtheria, Pertussis, Tetanus Vaccination: Yes - during this Review of Systems - Review of Systems Constitutional: No symptoms reported Cardiovascular: No symptoms reported Respiratory: No symptoms reported Gastrointestinal: denies: Nausea, Vomiting Genitourinary: denies: No symptoms reported Female Genitourinary: , Vaginal bleeding, Other - Lower pelvic cramping Musculoskeletal: No symptoms reported Skin: No symptoms reported Neurological/Psychological: No symptoms reported -: Yes All other systems reviewed and negative Physical Exam - Vital signs Vitals: Temp Pulse Resp BP Pulse Ox 98.5 F 87 20 139/73 H 99 12/29/19 18:54 12/29/19 18:54 12/29/19 18:54 12/29/19 18:54 12/29/19 18:54 - General General appearance: Appears well, Alert In distress: Mild - HEENT Head: Normocephalic, Atraumatic Eyes: Normal Pupils: PERRL - Respiratory Respiratory status: No respiratory distress Chest status: Nontender Breath sounds: Normal Chest palpation: Normal - Cardiovascular Rhythm: Regular Heart sounds: Normal auscultation Murmur: No - Abdominal Inspection: Normal Distension: No distension, Other Tenderness: Tender - Mild lower pelvic tenderness on palpation.. No: Guarding, Rebound Organomegaly: No organomegaly - Genitourinary External exam: Normal Speculum exam: Normal, Cervix closed. No: Vaginal discharge Vaginal bleeding: None Bimanuel exam: Normal. No: Cervical motion tender, Adnexal mass, Adnexal tenderness, Uterus enlarged - Back Back: Normal, Nontender. No: CVA tenderness - Neurological Neuro grossly intact: Yes Cognition: Normal Orientation: AAOx4 Sarles Coma Scale Eye Opening: Spontaneous Cathy Coma Scale Verbal: Oriented Cathy Coma Scale Motor: Obeys Commands Sarles Coma Scale Total: 15 Speech: Normal Motor strength normal: LUE, RUE, LLE, RLE Sensory: Normal - Skin Skin Temperature: Warm Skin Moisture: Dry Skin Color: Normal Course - Re-evaluation Re-evalutation: 12/29/19 23:45 Patient is resting comfortably pain-free on exam. No vaginal bleeding noted on pelvic exam. Reviewed all test results with patient. Counseled on need to follow-up with an [employer] for a repeat hCG in 48 hours. Discussed threatened miscarriage secondary to no heart tones, no pole, and previous vaginal bleeding. Patient was given strict return to the emergency room guidelines. Return for any new or worsening symptoms. All questions were answered. Patient verbalized understanding and agrees with plan of care. - Vital Signs Vital signs: Temp Pulse Resp BP Pulse Ox 98.5 F 87 20 139/73 H 99 12/29/19 19:03 12/29/19 18:54 12/29/19 18:54 12/29/19 18:54 12/29/19 18:54 - Laboratory Result Diagrams: 12/29/19 19:20 Laboratory results interpreted by me: 12/29/19 12/29/19 12/29/19 19:20 19:20 19:20 RDW 16.6 H Beta HCG, Quant 7202.10 H Ur Leukocyte Esterase MODERATE H Urine HCG, Qual POSITIVE H - Diagnostic Test Radiology reviewed: Reports reviewed Discharge - Discharge Clinical Impression: Threatened miscarriage Condition: Stable Disposition: HOME, SELF-CARE Instructions: Threatened Miscarriage ([facility]), Ob-Capsule Filler Doctors Additional Instructions: You need to follow-up with an [employer] in 48 hours for repeat hCG, return to the emergency room for any new or worsening symptoms. Referrals: LOCALMD,NO [Primary Care Provider] - Follow up as needed MARYCRUZ DIANE MD [ACTIVE STAFF] - Follow up tomorrow (Call for follow-up appointment in 48 hours.)
--- NOTE | 2019-12-29 22:23 | RADIOLOGY REPORT (SQ) ---
EXAM: First trimester ultrasound. CLINICAL INDICATION: . Vaginal bleeding. COMPARISON: None. TECHNIQUE: First trimester OB ultrasound was performed. FINDINGS: Uterus: The uterus measures 8.8 x 3.8 x 6.9 cm and appears retroverted. The cervix is closed and measures 2.7 cm in length. A gestational sac is identified. Adjacent to the gestational sac is an area of hemorrhage measuring 2.2 x 1.3 x 1.1 cm. The gestational sac measures 6.4 x 10.1 x 14.0 mm. A normal yolk sac is identified which measures 2.3 mm. The mean sac diameter is 10.2 mm which correlates with a gestational age of five weeks five days. Estimated delivery date is 08/25/2020. No pole. No cardiac activity. Ovaries and adnexa:The right ovary measures 3.1 x 2.9 x 1.7 cm and contains a hypoechoic area measuring 1.7 x 2.0 x 1.5 cm. This has a small amount of peripheral blood flow and is suggestive of a corpus luteal cyst. There is no torsion. The left ovary measures 3.1 x 2.9 x 1.9 cm and is morphologically normal with normal blood flow. No free fluid. No adnexal mass. IMPRESSION: Gestational sac is identified with an associated subchorionic hemorrhage. Normal yolk sac. No pole. Viability is indeterminate. Overall age by ultrasound is five weeks five days.
[2019-12-30 00:21] VITALS: BP 114/68
== END 2019-12-30 00:22 | disposition home or self-care (01) ==
LOC: ER 18:49
DX: O20.0 Threatened abortion (principal); O26.891 Other specified pregnancy related conditions, first trimester; R10.2 Pelvic and perineal pain; O99.331 Smoking (tobacco) complicating pregnancy, first trimester; Z3A.01 Less than 8 weeks gestation of pregnancy; Z88.8 Allergy status to other drugs, medicaments and biological substances
CPT/HCPCS: 36415; 76817; 81001; 81025; 84702; 85025; 93976; 99284